=== PATIENT | female | born 1970 | race African-American/Black ===

== ENCOUNTER 2017-10-23 03:28 | Inpatient (IN) | payer OTHER ==
[2017-10-23] VITALS (13 sets, daily range): BP systolic 117–214; BP diastolic 63–122; PULSE 63–104; RESP 13–18; TEMP 97.9–98.7; O2SAT 99–100
[~2017-10-23] VITALS: Ht 165.1 cm; Wt 74.8 kg
[2017-10-23] MEDS ORDERED: IOHEXOL 350 MG/ML 10 ML VIAL (for RAD DIAG) IVCONTRAST ONE (03:29)
--- NOTE | 2017-10-23 03:51 | RADRPT ---
EXAM DATE/TIME: 10/23/2017 03:43 [facility] COMPARISON: No previous studies available for comparison. INDICATIONS : Stroke alert; right sided weakness. RADIATION DOSE: 35.34 CTDIvol (mGy) This report was called by Dr Ramírez to Dr Gonzalez at 0349 MEDICAL HISTORY : Cerebrovascular disease. SURGICAL HISTORY : None. ENCOUNTER: Initial ACUITY: 1 day PAIN SCALE: 0/10 LOCATION: cranial TECHNIQUE: Multiple contiguous axial images were obtained of the head. Using automated exposure control and adj ustment of the mA and/or kV according to patient size, radiation dose was kept as low as reasonably a chievable to obtain optimal diagnostic quality images. DICOM format image data is available electro nically for review and comparison. FINDINGS: CEREBRUM: The ventricles are normal for age. No evidence of midline shift, mass lesion, hemorrhage or acute in farction. No extra-axial fluid collections are seen. POSTERIOR FOSSA: The cerebellum and brainstem are intact. The 4th ventricle is midline. The cerebellopontine angle i s unremarkable. EXTRACRANIAL: The visualized portion of the orbits is intact. SKULL: The calvaria is intact. No evidence of skull fracture. CONCLUSION: Normal examination. Mo Ramírez Jr., MD on October 23, 2017 at 3:48 Board Certified Radiologist. This report was verified electronically.
[2017-10-23 03:58] LABS: AUTOMATED NEUTROPHIL # 2.2 TH/MM3 (1.8-7.7); BASOPHIL % 0.4 % (0.0-2.0); EOSINOPHIL # 0.5 TH/MM3 (0-0.4); EOSINOPHIL % 7.5 % (0.0-4.0); HEMATOCRIT 40.9 % (35.0-46.0); HEMOGLOBIN 13.6 GM/DL (11.6-15.3); LYMPH % 50.9 % (9.0-44.0); LYMPHOCYTE # 3.4 TH/MM3 (1.0-4.8); MEAN CELL VOLUME 82.2 FL (80.0-100.0); MEAN CORPUSCULAR HEMOGLOBIN 27.3 PG (27.0-34.0); MEAN CORPUSCULAR HGB CONC 33.3 % (32.0-36.0); MEAN PLATELET VOLUME 9.2 FL (7.0-11.0); MONO % 7.6 % (0.0-8.0); MONOCYTE # 0.5 TH/MM3 (0-0.9); NEUT % 33.6 % (16.0-70.0); PLATELET COUNT 187 TH/MM3 (150-450); RED BLOOD COUNT 4.97 MIL/MM3 (4.00-5.30); RED CELL DISTRIBUTION WIDTH 14.4 % (11.6-17.2); WHITE BLOOD COUNT 6.6 TH/MM3 (4.0-11.0)
[2017-10-23] MEDS ORDERED: SODIUM CHLORIDE 0.9% 50 ML BAG IVF ONE (04:00)
[2017-10-23] MEDS ORDERED: MISCELLANEOUS NURSING INFORMATION XX PRN (04:00)
[2017-10-23] MEDS ORDERED: ALTEPLASE BOLUS 9 MG/9 ML SYR IV ONE (04:00)
[2017-10-23] MEDS ORDERED: ALTEPLASE DRIP 60.5 MG in SYRINGE/BAG 1 EA IV ONE (04:00)
--- NOTE | 2017-10-23 04:00 | PD ---
HPI Chief Complaint: Neuro Symptoms/ Deficits Time Seen by Provider: 03:31 Travel History International Travel<30 days: No Contact w/Intl Traveler<30days: No History of Present Illness HPI The patient is a 47 year old female who presents to the [facility] emergency department with a history of reportedly not feeling well prior to going to work at midnight. She is unable to explain how she did not feel well as she is having difficulty speaking. She reports that the symptoms were getting worse at work. She called her boss between 1 and 2 AM and he decided to take her to the emergency department. When she got in the car to come to the emergency department she reports that she was having difficulty putting on her seatbelt. That is when she noticed that she had difficulty moving her right arm. She denies having this previously. She reports that she does have a history of residual weakness of the right lower extremity related to a stroke in March 2017. She denies taking an aspirin on a regular basis daily. She reports that she was on Coumadin up until May 2017. She reports that she does have a history of high blood pressure. The patient estimates that the right upper extremity weakness and difficulty speaking began just prior to arrival in the emergency department while she was in the car being transported by her boss to this facility approximately 30 minutes ago. She reports that she did have chest pain in the vehicle. She denies having any shortness of breath. Otherwise on review of systems, she denies having any recent known fevers, cough or congestion, neck pain, abdominal pain, vomiting, diarrhea, or urinary symptoms. [facility] Past Medical History Narrative Medical The patient's past medical history is significant for stroke with residual weakness of the right leg that occurred in 03/2017, history of anticoagulation on Coumadin until [id number], hypertension. Past Surgical History Narrative Surgical The patient's past surgical history is significant for hysterectomy 1998. Social History Alcohol Use: No Tobacco Use: No Substance Use: No Allergies-Medications (Allergen,Severity, Reaction): Coded Allergies: No Known Allergies (Unverified , 10/23/17) Review of Systems Except as stated in HPI: all other systems reviewed are Neg General / Constitutional: No: Fever Eyes: No: Visual changes HENT: No: Headaches, Congestion, Neck Stiffness, Neck Pain Cardiovascular: Positive: Chest Pain or Discomfort Respiratory: No: Cough, Shortness of Breath Gastrointestinal: No: Abdominal Pain Genitourinary: No: Dysuria Musculoskeletal: No: Pain Skin: No Rash Neurologic: Positive: Weakness, Focal Abnormalities, Change in Mentation, Sensory Disturbance, No: Slurred Speech Psychiatric: No: Depression Endocrine: No: Polydipsia Hematologic/Lymphatic: No: Easy Bruising Physical Exam Narrative General: The patient is a well-developed well-nourished female, tearful on initial arrival. She is having difficulty speaking. Head and Neck exam: Head is normocephalic atraumatic. Eyes: EOMI, pupils are equal round and reactive to light. Nose: Midline septum with pink mucous membranes Mouth: Dentition unremarkable. Moist mucus membranes. Posterior oropharynx is not erythematous. No tonsillar hypertrophy. Uvula midline. Airway patent. Neck: No palpable lymphadenopathy. No nuchal rigidity. No thyromegaly. Cardiovascular: Regular rate and rhythm without murmurs, gallops, or rubs. No pulse deficit to the extremities on simultaneous auscultation and palpation of her radial artery. Lungs: Clear to auscultation bilaterally. No wheezes, rhonchi, or rales. Abdomen: Soft, without tenderness to palpation in all 4 quadrants of the abdomen. No guarding, rebound, or rigidity. Normal bowel sounds are audible. No tenderness on palpation of McBurney's point. Extremities: No clubbing, cyanosis, or edema. 2+ pulses in all 4 extremities. No calf tenderness on palpation. Back: No costovertebral angle tenderness to palpation. Neurologic Exam: Initial NIH score is 6. The patient has a mild left-sided facial droop. The patient has right upper and right lower extremity weakness that is 3/5 in the right lower extremity and 4/5 in the right upper extremity. The patient has a mild expressive aphasia and is slow to answer questions. The patient has decreased sensation reported in her right upper and right lower extremity, normal sensation over all other dermatomes. No visual deficits noted. Skin Exam: No rash noted. Intact skin that is warm and dry. Data Data Last Documented VS Vital Signs Date Time Temp Pulse Resp B/P (MAP) Pulse Ox O2 Delivery O2 Flow Rate FiO2 10/23/17 04:55 85 16 129/78 (95) 100 Room Air 10/23/17 03:30 98.2 10/23/17 03:30 21 Orders Orders Diet Npo (3/12/18 Breakfast) Activity Bed Rest (10/23/17 ) Electrocardiogram (10/23/17 ) I-Stat Profile (10/23/17 03:41) Prothrombin Time / Inr (Pt) (10/23/17 03:41) Act Partial Throm Time (Ptt) (10/23/17 03:41) Complete Blood Count With Diff (10/23/17 03:41) Fibrinogen (10/23/17 03:41) Creatine Kinase (Cpk) (10/23/17 03:41) Troponin I (10/23/17 03:41) Ua Includes Microscopic (10/23/17 03:41) Drug Screen, Random Urine (10/23/17 03:41) Type And Screen (10/23/17 03:41) Ct Brain W/O Iv Contrast(Rout) (10/23/17 ) Cta Brain W Iv Contrast W 3d (10/23/17 03:41) Cta Neck W Iv Contrast W 3d (10/23/17 03:41) Beta Hcg (Quant/Titer) (10/23/17 03:41) Blood Glucose (10/23/17 03:41) Ecg Monitoring (10/23/17 03:41) Neuro Checks Q2HX12,Q4H (10/23/17 03:41) Nursing Bedside Swallow Assess .ONCE (10/23/17 03:41) Iv Access Insert/Monitor (10/23/17 03:41) NPO (10/23/17 03:41) Oximetry (10/23/17 03:41) Resp Oxygen Nc Stroke (10/23/17 ) Cath For Specimen (10/23/17 03:41) Consult Neurology (10/23/17 ) ^ Call Pharmacy (10/23/17 03:55) Nih Stroke Scale - Nihss .ONCE (10/23/17 03:55) Urinary Catheter Insert/Apply (10/23/17 03:55) Anticoagulant Alert (10/23/17 03:55) ^ Post Infusion Restrictions (10/23/17 03:55) ^ Medication Alert (10/23/17 03:55) Vital Signs (Adult) .As directed (10/23/17 03:55) Notify Dr: Blood Pressure (10/23/17 03:55) ^ Medication Alert (10/23/17 03:55) Alteplase Bolus (Activase Bolus) (10/23/17 04:00) Alteplase Drip (Activase Drip) (10/23/17 04:00) Sodium Chloride 0.9% Inj (Ns Inj) (10/23/17 04:00) Misc Nursing Information (10/23/17 04:00) Resp Oxygen Nc Stroke (10/23/17 ) Ct Brain W/O Iv Contrast(Rout) (10/24/17 ) Iohexol 350 Inj (Omnipaque 350 Inj) (10/23/17 03:29) (Hub Use Only)Inp Phy Cons/Ref (10/23/17 ) Admit Order (Ed Use Only) (10/23/17 05:58) Labs Laboratory Tests Test 10/23/17 03:40 10/23/17 04:15 White Blood Count 6.6 TH/MM3 Red Blood Count 4.97 MIL/MM3 Hemoglobin 13.6 GM/DL Bedside Hemoglobin 13.9 G/DL Hematocrit 40.9 % Bedside Hematocrit 41.0 % Mean Corpuscular Volume 82.2 FL Mean Corpuscular Hemoglobin 27.3 PG Mean Corpuscular Hemoglobin Concent 33.3 % Red Cell Distribution Width 14.4 % Platelet Count 187 TH/MM3 Mean Platelet Volume 9.2 FL Neutrophils (%) (Auto) 33.6 % Lymphocytes (%) (Auto) 50.9 % Monocytes (%) (Auto) 7.6 % Eosinophils (%) (Auto) 7.5 % Basophils (%) (Auto) 0.4 % Neutrophils # (Auto) 2.2 TH/MM3 Lymphocytes # (Auto) 3.4 TH/MM3 Monocytes # (Auto) 0.5 TH/MM3 Eosinophils # (Auto) 0.5 TH/MM3 Basophils # (Auto) 0.0 TH/MM3 CBC Comment DIFF FINAL Differential Comment Prothrombin Time 10.7 SEC Prothromb Time International Ratio 1.1 RATIO Activated Partial Thromboplast Time 27.9 SEC Fibrinogen 261 mg/dL Bedside Sodium 142 MMOL/L Bedside Potassium 3.9 MMOL/L Bedside Chloride 104 MMOL/L Bedside Blood Urea Nitrogen 8 MG/DL Bedside Creatinine 1.0 MG/DL Bedside Glucose 95 MG/DL Total Creatine Kinase 177 U/L Troponin I LESS THAN 0.02 NG/ML Human Chorionic Gonadotropin, Quant 1 MIU/ML Urine Color LIGHT-YELLOW Urine Turbidity CLEAR Urine pH 6.0 Urine Specific [place] 1.019 Urine Protein NEG mg/dL Urine Glucose (UA) NEG mg/dL Urine Ketones NEG mg/dL Urine Occult Blood NEG Urine Nitrite NEG Urine Bilirubin NEG Urine Urobilinogen LESS THAN 2.0 MG/DL Urine Leukocyte Esterase SMALL Urine RBC LESS THAN 1 /hpf Urine WBC LESS THAN 1 /hpf Urine Squamous Epithelial Cells 1 /hpf Urine Opiates Screen NEG Urine Barbiturates Screen NEG Urine Amphetamines Screen NEG Urine Benzodiazepines Screen NEG Urine Cocaine Screen NEG Urine Cannabinoids Screen NEG MDM Medical Decision Making Medical Screen Exam Complete: Yes Emergency Medical Condition: Yes Medical Record Reviewed: Yes Interpretation(s) Last Impressions Neck CTA 10/23/17340 Signed Impressions: Service Date/Time: Monday, October 23, 2017 03:56 - CONCLUSION: Patent carotid arteries and vertebral arteries bilaterally. Mo Ramírez Jr., MD Head CTA 10/23/17340 Signed Impressions: Service Date/Time: Monday, October 23, 2017 03:56 - CONCLUSION: Unremarkable exam. Mo Ramírez Jr., MD Head CT 10/23/17 0000 Signed Impressions: Service Date/Time: Monday, October 23, 2017 03:43 - CONCLUSION: Normal examination. Mo Ramírez Jr., MD Differential Diagnosis Ischemic stroke, versus intracranial hemorrhage, versus hypoglycemia, versus encephalopathy, versus intracranial mass Narrative Course During the course of the patient's emergency department visit, the patient's history, examination, and differential diagnosis were reviewed with the patient. The patient was placed on a chemical equipment repairer with oximetry and frequent blood pressure monitoring. The patient had IV access obtained and blood work sent for analysis. The patient was called as a stroke alert as I was arriving in the room based on the patient's assessment by the nurse. The patient's blood sugar was noted to be in the 90s. A rapid assessment might be reveals that the patient has right-sided weakness, left-sided facial droop, mild expressive aphasia. The patient was transported to CT. A stroke alert was called at 3:33AM. I spoke to Dr. Barros the neurologist on-call regarding this patient's case. We reviewed the patient's symptoms and he was agreeable that the patient is a candidate for TPA administration if her CT scan without contrast is negative for bleed. Patient's initial blood pressure was 200 systolic, however it rapidly improved on repeat evaluation while in CT. The patient's blood pressure came down to the 160s systolic. An EKG revealed that the patient had a sinus rhythm of 84, QRS duration 91 ms, QTC [address] segment elevation. The patient was initially provided normal saline at 70 mL/h. The patient's head of the bed was placed flat. The patient's laboratory studies were reviewed and remarkable for an i-STAT with creatinine revealed a creatinine of 1.0, hemoglobin 13.9, glucose 95, sodium 142, potassium 3.9. Radiology studies were reviewed and remarkable for a CT scan of the brain that was read by the reading radiologist, Dr. Ramírez is negative for intracranial hemorrhage. The patient was offered TPA administration and CT scan while we are in the process of also completing a CTA of the head and neck. The patient' s initial NIH score is 8 at approximately 3:45 AM. Risks and benefits for tPA were discussed with the patient. Risks including hemorrhage, including potentially fatal GI and intracranial bleeding which can result in long-term serious disability or were discussed. Benefits including resolution of symptoms were discussed. The patient consented verbally to proceed with therapy. TPA was started and the CT scan well CTA of the head and neck was completed. The patient was then transported back to the emergency department bed. CTA of the head and neck shows no acute evidence of thrombosis. The patient's results were discussed with the patient, including the plan of care. I explained that further testing and/ or monitoring is indicated based on the patient's history, examination, and/ or laboratory findings. Therefore, I recommended admission for additional evaluation. The patient expressed understanding and was agreeable with this plan. The patient was admitted to the hospital in guarded condition and sent to a bed under the care of the quality measurement specialist service. Critical Care Narrative Aggregate critical care time was 34 minutes. Time to perform other separately billable procedures was not included in the critical care time. My time did not include minutes spent treating any other patients simultaneously or on activities that did not directly contribute to the patient's treatment. The services I provided to this patient were to treat and/or prevent clinically significant deterioration that could result in: Progressive neurologic disability, versus intracranial hemorrhage, versus respiratory failure from neurologic decline I provided critical care services requiring my management, as noted below: Chart data review, documentation time, medication orders and management, vital sign assessments/reviewing monitor data, ordering and reviewing lab tests, ordering and interpreting/reviewing x-rays and diagnostic studies, care of the patient and discussion of the patient with the admitting physicians. Physician Communication Physician Communication The patient's case including history, pertinent physical examination findings, and laboratory studies were discussed with Dr. Mcdowell. It was agreed that the patient would be admitted to the quality measurement specialist service. At 3:45 AM, I spoke to Dr. Barros and he recommended TPA administration if the CT brain without contrast was negative for bleed. Diagnosis Primary Impression: Stroke Qualified Codes: I63.9 - Cerebral infarction, unspecified Admitting Information Admitting Physician Requests: it Liza Gonzalez MD Oct 23, 2017 04:00
[2017-10-23 04:13] LABS: INTERNATIONAL NORMALIZED RATIO 1.1 RATIO; PROTHROMBIN TIME - PATIENT 10.7 SEC (9.8-11.6)
[2017-10-23 04:28] LABS: TROPONIN I LESS THAN 0.02 NG/ML (0.02-0.05)
--- NOTE | 2017-10-23 04:37 | RADRPT ---
EXAM DATE/TIME: 10/23/2017 03:56 [facility] COMPARISON: No previous studies available for comparison. INDICATIONS : Stroke alert. Right sided weakness. IV CONTRAST: 100 cc Omnipaque 350 (iohexol) IV RADIATION DOSE: 26.77 CTDIvol (mGy) ; Combined studies MEDICAL HISTORY : Cardiovascular disease. SURGICAL HISTORY : None. ENCOUNTER: Initial ACUITY: 1 day PAIN SCALE: 0/10 LOCATION: cranial TECHNIQUE: Volumetric scanning was performed using a multi-row detector CT scanner. The data was post processed with a variety of visualization algorithms including full volume maximum intensity projection, multi -planar sliding thin slab reformation, curved planar reformation, and surface rendering techniques. Using automated exposure control and adjustment of the mA and/or kV according to patient size, radiat ion dose was kept as low as reasonably achievable to obtain optimal diagnostic quality images. DICO M format image data is available electronically for review and comparison. FINDINGS: There is excellent visualization of the major intracranial arteries out to the second-order branch ve ssels. There is no evidence for aneurysm, vessel truncation or stenosis, and no evidence for vascula r malformation. CONCLUSION: Unremarkable exam. Mo Ramírez Jr., MD on October 23, 2017 at 4:34 Board Certified Radiologist. This report was verified electronically.
--- NOTE | 2017-10-23 04:37 | RADRPT ---
EXAM DATE/TIME: 10/23/2017 03:56 [facility] COMPARISON: No previous studies available for comparison. INDICATIONS : Stroke Alert. Right sided weakness. IV CONTRAST: 100 cc Omnipaque 350 (iohexol) IV ; Cumulative dose for multiple exams. RADIATION DOSE: 26.77 CTDIvol (mGy) ; Combined studies MEDICAL HISTORY : Cerebrovascular disease. SURGICAL HISTORY : None. ENCOUNTER: Initial ACUITY: 1 day PAIN SCALE: 0/10 LOCATION: carotids Elevated flow velocities and ICA/CCA ratios have been found to correlate with increased degrees of vessel stenosis, calculated as percentage of diameter relative to a normal segment of distal ICA/CCA. TECHNIQUE: Volumetric scanning was performed using a multirow detector CT scanner. The data was post processed with a variety of visualization algorithms including full-volume maximum intensity projection, multip lanar sliding thin-slab reformation, curved-planar reformation, and surface-rendering techniques. Us ing automated exposure control and adjustment of the mA and/or kV according to patient size, radiatio n dose was kept as low as reasonably achievable to obtain optimal diagnostic quality images. DICOM f ormat image data is available electronically for review and comparison. FINDINGS: AORTIC ARCH: There is a three-vessel origin of the great vessels from the aorta. No evidence of ostial narrowing. RIGHT CAROTID: The common carotid artery is intact. The carotid bulb has a normal configuration without ulceration o r narrowing. The internal carotid artery lumen is smooth without stenosis. The external carotid kiran ry is intact. LEFT CAROTID: The common carotid artery is intact. The carotid bulb has a normal configuration without ulceration or narrowing. The internal carotid artery lumen is smooth without stenosis. The external carotid ar jevon is intact. VERTEBRALS: The vertebral arteries have a symmetric diameter. No stenotic lesions are seen. CONCLUSION: Patent carotid arteries and vertebral arteries bilaterally. Mo Ramírez Jr., MD on October 23, 2017 at 4:35 Board Certified Radiologist. This report was verified electronically.
[2017-10-23 04:44] LABS: BILIRUBIN, URINE NEG (NEG); BLOOD, URINE NEG (NEG); GLUCOSE,URINE NEG (NEG); KETONE, URINE NEG (NEG); NITRITE,URINE NEG (NEG); SQUAMOUS EPITHELIAL CELL URINE 1 /hpf (0-5); URINE COLOR LIGHT-YELLOW (YELLW/STRAW); URINE LEUKOCYTE ESTERASE SMALL (NEG)
[2017-10-23] MEDS ORDERED: LABETALOL HCL 100 MG/20 ML VIAL IV PUSH PRN (06:30)
[2017-10-23] MEDS ORDERED: GLUCAGON 1 MG/ML VIAL OTHER PRN (06:30)
[2017-10-23] MEDS ORDERED: DEXTROSE 50% IN WATER 50 ML VIAL(D50) IV PUSH PRN (06:30)
[2017-10-23] MEDS ORDERED: SODIUM CHLORIDE 0.9% FLUSH 10 ML FLUSH IV FLUSH PRN (06:30)
[2017-10-23] MEDS: SODIUM CHLOR 0.9% 1000 ML INJ 1,000 ML IV SCH ×2 (06:49→20:57)
[2017-10-23] MEDS: INSULIN ASPART SUPPLEMENTAL SCALE SQ SCH ×4 (08:00→21:00)
[2017-10-23] MEDS: SODIUM CHLORIDE 0.9% FLUSH 10 ML FLUSH IV FLUSH SCH ×2 (08:08→20:56)
[2017-10-23] MEDS: ACETAMINOPHEN 325 MG TAB PO PRN (11:00)
--- NOTE | 2017-10-23 13:18 | HHI.HP ---
HPI Service Critical Care Medicine Primary Care Physician Unknown Admission Diagnosis STOKE Alert Diagnosis: Chief Complaint: Right sided weakness Travel History International Travel<30 Days: No Contact w/Intl Traveler <30 Da: No Traveled to Known Affected Are: No History of Present Illness HPI The patient is a 47 year old female who presents to the [facility] emergency department with a history of reportedly not feeling well prior to going to work at midnight. She is unable to explain how she did not feel well as she is having difficulty speaking. She reports that the symptoms were getting worse at work. She called her boss between 1 and 2 AM and he decided to take her to the emergency department. When she got in the car to come to the emergency department she reports that she was having difficulty putting on her seatbelt. That is when she noticed that she had difficulty moving her right arm. She denies having this previously. She reports that she does have a history of residual weakness of the right lower extremity related to a stroke in March 2017. She denies taking an aspirin on a regular basis daily. She reports that she was on Coumadin up until May 2017. She reports that she does have a history of high blood pressure. The patient estimates that the right upper extremity weakness and difficulty speaking began just prior to arrival in the emergency department while she was in the car being transported by her boss to this facility approximately 30 minutes ago. She reports that she did have chest pain in the vehicle. She denies having any shortness of breath. Otherwise on review of systems, she denies having any recent known fevers, cough or congestion, neck pain, abdominal pain, vomiting, diarrhea, or urinary symptoms. Patient underwent head CT which was negative for bleed. She was initiated on TPA for thrombolysis. CT of brain did not show any occlusion of major vessels. Patient was accepted for admission by critical care medicine service with consult to neurology. When I evaluated the patient in the ER early this morning she was laying in the ER stretcher not in any acute distress. History is obtained by reviewing records and discussion with ER physician. History [facility] Past Medical History Narrative Medical The patient's past medical history is significant for stroke with residual weakness of the right leg that occurred in 03/2017, history of anticoagulation on Coumadin until [id number], hypertension. Past Surgical History Narrative Surgical The patient's past surgical history is significant for hysterectomy 1998. Social History Alcohol Use: No Tobacco Use: No Substance Use: No Allergies-Medications Allergies-Medications (Allergen,Severity, Reaction): Coded Allergies: No Known Allergies (Unverified , 10/23/17) ROS Review of Systems Except as stated in HPI: all other systems reviewed are Neg General / Constitutional: No: Fever Eyes: No: Visual changes HENT: No: Headaches, Congestion, Neck Stiffness, Neck Pain Cardiovascular: Positive: Chest Pain or Discomfort Respiratory: No: Cough, Shortness of Breath Gastrointestinal: No: Abdominal Pain Genitourinary: No: Dysuria Musculoskeletal: No: Pain Skin: No Rash Neurologic: Positive: Weakness, Focal Abnormalities, Change in Mentation, Sensory Disturbance, No: Slurred Speech Psychiatric: No: Depression Endocrine: No: Polydipsia Hematologic/Lymphatic: No: Easy Bruising Physical Exam Vital Signs Vital Signs Date Time Temp Pulse Resp B/P (MAP) Pulse Ox O2 Delivery O2 Flow Rate FiO2 10/23/17 08:40 10/23/17 08:30 98.1 70 17 142/84 (103) 100 10/23/17 07:32 100 Room Air 10/23/17 07:28 66 15 100 Room Air 10/23/17 07:23 97.9 66 15 125/76 (92) 100 Room Air 10/23/17 06:49 67 16 132/80 (97) 100 Room Air 10/23/17 04:55 85 16 129/78 (95) 100 Room Air 10/23/17 03:55 86 18 160/86 (110) 99 Room Air 10/23/17 03:30 98.2 101 18 181/113 (135) 100 10/23/17 03:30 100 21 10/23/17 03:30 75 16 100 Room Air 10/23/17 03:30 98.0 104 16 214/122 (152) 100 Room Air 10/23/17 03:30 100 Physical Exam HEENT: No pallor or icterus, tongue moist, MINOO, Neuro: Initial NIH score is 6. The patient has a mild left-sided facial droop. The patient has right upper and right lower extremity weakness that is 3/5 in the right lower extremity and 4/5 in the right upper extremity. The patient has a mild expressive aphasia and is slow to answer questions. The patient has decreased sensation reported in her right upper and right lower extremity, normal sensation over all other dermatomes. No visual deficits noted. Neck: No JVD Chest/pulmonary: CTA bilaterally Cardiovascular: S1-S2 regular no gallop or murmur GI/abdomen: Soft, nontender, bowel sounds present Extremities: Warm bilaterally, no edema Laboratory Laboratory Tests Test 10/23/17 03:40 10/23/17 04:15 White Blood Count 6.6 Red Blood Count 4.97 Hemoglobin 13.6 Bedside Hemoglobin 13.9 Hematocrit 40.9 Bedside Hematocrit 41.0 Mean Corpuscular Volume 82.2 Mean Corpuscular Hemoglobin 27.3 Mean Corpuscular Hemoglobin Concent 33.3 Red Cell Distribution Width 14.4 Platelet Count 187 Mean Platelet Volume 9.2 Neutrophils (%) (Auto) 33.6 Lymphocytes (%) (Auto) 50.9 Monocytes (%) (Auto) 7.6 Eosinophils (%) (Auto) 7.5 Basophils (%) (Auto) 0.4 Neutrophils # (Auto) 2.2 Lymphocytes # (Auto) 3.4 Monocytes # (Auto) 0.5 Eosinophils # (Auto) 0.5 Basophils # (Auto) 0.0 CBC Comment DIFF FINAL Differential Comment Prothrombin Time 10.7 Prothromb Time International Ratio 1.1 Activated Partial Thromboplast Time 27.9 Fibrinogen 261 Bedside Sodium 142 Bedside Potassium 3.9 Bedside Chloride 104 Bedside Blood Urea Nitrogen 8 Bedside Creatinine 1.0 Bedside Glucose 95 Total Creatine Kinase 177 Troponin I LESS THAN 0.02 Human Chorionic Gonadotropin, Quant 1 Urine Color LIGHT-YELLOW Urine Turbidity CLEAR Urine pH 6.0 Urine Specific [place] 1.019 Urine Protein NEG Urine Glucose (UA) NEG Urine Ketones NEG Urine Occult Blood NEG Urine Nitrite NEG Urine Bilirubin NEG Urine Urobilinogen LESS THAN 2.0 Urine Leukocyte Esterase SMALL Urine RBC LESS THAN 1 Urine WBC LESS THAN 1 Urine Squamous Epithelial Cells 1 Urine Opiates Screen NEG Urine Barbiturates Screen NEG Urine Amphetamines Screen NEG Urine Benzodiazepines Screen NEG Urine Cocaine Screen NEG Urine Cannabinoids Screen NEG Result Diagram: 10/23/17339 Imaging Last Impressions Neck CTA 10/23/17340 Signed Impressions: Service Date/Time: Monday, October 23, 2017 03:56 - CONCLUSION: Patent carotid arteries and vertebral arteries bilaterally. Mo Ramírez Jr., MD Head CTA 10/23/17340 Signed Impressions: Service Date/Time: Monday, October 23, 2017 03:56 - CONCLUSION: Unremarkable exam. Mo Ramírez Jr., MD Head CT 10/23/17 0000 Signed Impressions: Service Date/Time: Monday, October 23, 2017 03:43 - CONCLUSION: Normal examination. MD Darling Solis Jr. VTE Risk Assessment Darling VTE Risk Assessment: Mod/High Risk (score >= 2) Jose Luisrinyue Risk Assessment Model Point Value = 1 Point Value = 2 Point Value = 3 Point Value = 5 Age 41-60 Minor surgery BMI > 25 kg/m2 Swollen legs Varicose veins or History of unexplained or recurrent spontaneous Oral contraceptives or hormone replacement Sepsis (< 1 month) Serious lung disease, including pneumonia (< 1 month) Abnormal pulmonary function Acute myocardial infarction Congestive heart failure (< 1 month) History of inflammatory bowel disease Medical patient at bed rest Age 61-74 Arthroscopic surgery Major open surgery (> 45 min) Laparoscopic surgery (> 45 min) Malignancy Confined to bed (> 72 hours) Immobilizing plaster cast Central venous access Age >= 75 History of VTE Family history of VTE Factor V Leiden Prothrombin [id number] Lupus anticoagulant Anticardiolipin antibodies Elevated serum homocysteine Heparin-induced thrombocytopenia Other congenital or acquired thrombophilia Stroke (< 1 month) Elective arthroplasty Hip, pelvis, or leg fracture Acute spinal cord injury (< 1 month) Prophylaxis Regimen Total Risk Factor Score Risk Level Prophylaxis Regimen 0-1 Low Early ambulation 2 Moderate Order ONE of the following: *Sequential Compression Device (SCD) *Heparin 5000 units SQ BID 3-4 Higher Order ONE of the following medications: *Heparin 5000 units SQ TID *Enoxaparin/Lovenox 40 mg SQ daily (WT < 150 kg, CrCl > 30 mL/min) *Enoxaparin/Lovenox 30 mg SQ daily (WT < 150 kg, CrCl > 10-29 mL/min) *Enoxaparin/Lovenox 30 mg SQ BID (WT < 150 kg, CrCl > 30 mL/min) AND/OR *Sequential Compression Device (SCD) 5 or more Highest Order ONE of the following medications: *Heparin 5000 units SQ TID (Preferred with Epidurals) *Enoxaparin/Lovenox 40 mg SQ daily (WT < 150 kg, CrCl > 30 mL/min) *Enoxaparin/Lovenox 30 mg SQ daily (WT < 150 kg, CrCl > 10-29 mL/min) *Enoxaparin/Lovenox 30 mg SQ BID (WT < 150 kg, CrCl > 30 mL/min) AND *Sequential Compression Device (SCD) Assessment and Plan Assessment and Plan Ischemic CVA s/p thrombolysis Plan: Admit to ICU Neurochecks per stroke protocol Neurology consult requested. Further neuro imaging per neurology. Repeat head CT in 24 hours following, lysis. Antiplatelet therapy to be initiated 24 hours after thrombolysis following review of head CT. Speech and swallow eval 2-D echo Follow stroke protocol. Further recommendations per neurology Consult and transfer to hospitalist service tomorrow for further medical management Gustavo Mcdowell MD Oct 23, 2017 13:18
[2017-10-23 16:43] LABS: HEMOGLOBIN A1C 5.6 % (4.3-6.0)
--- NOTE | 2017-10-23 17:36 | RADRPT ---
EXAM DATE/TIME: 10/23/2017 16:07 [facility] COMPARISON: CT BRAIN W/O CONTRAST, October 23, 2017, 3:43. INDICATIONS : CVA. Headaches with chest pains last night. MEDICAL HISTORY : Hypertension. SURGICAL HISTORY : Hysterectomy. ENCOUNTER: Initial ACUITY: 2 day PAIN SCORE: 3/10 LOCATION: Bilateral cranial TECHNIQUE: Multiplanar, multisequence MRI of the brain was performed without contrast. FINDINGS: CEREBRUM: The ventricles are normal for age. No evidence of midline shift, mass lesion, hemorrhage or acute in farction. No extraaxial fluid collections are seen. The pituitary gland and suprasellar cistern are normal in configuration. WHITE MATTER: No significant signal abnormalities are seen in the white matter. POSTERIOR FOSSA: The cerebellum and brainstem are intact. The 4th ventricle is midline. The cerebellopontine angle is unremarkable. The cerebellar tonsils are normal in position. DIFFUSION IMAGING: No focal areas of restricted diffusion are seen. No evidence of acute infarction. EXTRACRANIAL: The visualized portions of the orbits and paranasal sinuses are unremarkable. CONCLUSION: 1. No acute intra-cranial abnormality identified. Elmo Balderrama MD on October 23, 2017 at 17:32 Board Certified Radiologist. This report was verified electronically.
--- NOTE | 2017-10-23 18:14 | EKG ---
Date Performed: 10/23/2017 Time Performed: 04:04:16 PTAGE: 47 years EKG: Sinus rhythm NORMAL ECG NO PREVIOUS TRACING DOCTOR: Bailey Talbot Interpretating Date/Time 10/23/2017 18:11:58
[2017-10-23] MEDS: ATORVASTATIN 10 MG TAB PO SCH (20:57)
[2017-10-24] VITALS (14 sets, daily range): BP systolic 105–144; BP diastolic 56–78; PULSE 60–88; RESP 14–21; TEMP 98–98.8; O2SAT 98–100
[2017-10-24] MEDS: ACETAMINOPHEN 325 MG TAB PO PRN ×2 (05:18→22:56)
--- NOTE | 2017-10-24 05:21 | RADRPT ---
EXAM DATE/TIME: 10/24/2017 04:57 [facility] COMPARISON: CT BRAIN W/O CONTRAST, October 23, 2017, 3:43. INDICATIONS : Post 24 hour TPA. Evaluate for bleed. RADIATION DOSE: 56.35 CTDIvol (mGy) MEDICAL HISTORY : Cerebrovascular disease. Cardiovascular disease Hypertension.Diabetes GERD SURGICAL HISTORY : None. ENCOUNTER: Subsequent ACUITY: 1 day PAIN SCALE: 0/10 LOCATION: cranial TECHNIQUE: Multiple contiguous axial images were obtained of the head. Using automated exposure control and adj ustment of the mA and/or kV according to patient size, radiation dose was kept as low as reasonably a chievable to obtain optimal diagnostic quality images. DICOM format image data is available electro nically for review and comparison. FINDINGS: CEREBRUM: The ventricles are normal for age. No evidence of midline shift, mass lesion, hemorrhage or acute in farction. No extra-axial fluid collections are seen. POSTERIOR FOSSA: The cerebellum and brainstem are intact. The 4th ventricle is midline. The cerebellopontine angle i s unremarkable. EXTRACRANIAL: The visualized portion of the orbits is intact. SKULL: The calvaria is intact. No evidence of skull fracture. CONCLUSION: Normal examination. Mo Ramírez Jr., MD on October 24, 2017 at 5:18 Board Certified Radiologist. This report was verified electronically.
[2017-10-24 06:49] LABS: C-REACTIVE PROTEIN LESS THAN 0.29 MG/DL (0.00-0.30)
[2017-10-24 07:08] LABS: CHOLESTEROL/ HDL RATIO 2.76 RATIO; FOLATE 8.8 NG/ML (3.1-17.5); HDL CHOLESTEROL 48.8 MG/DL (40.0-60.0)
[2017-10-24 07:14] LABS: FREE T4 0.88 NG/DL (0.76-1.46)
--- NOTE | 2017-10-24 07:29 | HHI.PR ---
Subjective Remarks sr Objective Vital Signs Date Time Temp Pulse Resp B/P (MAP) Pulse Ox O2 Delivery O2 Flow Rate FiO2 10/24/17 06:00 72 10/24/17 04:00 72 10/24/17 04:00 98.3 72 14 116/69 (85) 100 10/24/17 02:00 70 10/24/17 00:00 98.0 60 21 105/56 (72) 100 10/24/17 00:00 60 10/23/17 22:00 76 10/23/17 21:38 100 21 10/23/17 20:00 74 10/23/17 20:00 98.7 74 13 117/63 (81) 100 10/23/17 19:00 99 Room Air 10/23/17 18:00 63 10/23/17 16:00 66 10/23/17 16:00 98.4 68 14 144/90 (108) 100 10/23/17 14:00 66 10/23/17 12:00 63 10/23/17 12:00 72 10/23/17 08:40 10/23/17 08:30 70 10/23/17 08:30 98.1 70 17 142/84 (103) 100 10/23/17 07:32 100 Room Air I/O 10/23/17 10/23/17 10/23/17 10/24/17 10/24/17 10/24/17 07:00 15:00 23:00 07:00 15:00 23:00 Intake Total 180 ml 400 ml Output Total 50 ml 850 ml Balance -50 ml -670 ml 400 ml Intake Oral 180 ml 400 ml Output Urine Total 50 ml 850 ml # Voids 2 1 2 # Bowel Movements 0 0 Result Diagram: 10/23/17 0340 Objective Remarks moving r arm better near nl lift knee off bed some Assessment and Plan Assessment and Plan imp ? complicated migraine no cva echo holter [place] notes oob should do well ldl nl Marty Barros MD Oct 24, 2017 07:29
[2017-10-24] MEDS: INSULIN ASPART SUPPLEMENTAL SCALE SQ SCH ×4 (08:00→20:39)
--- NOTE | 2017-10-24 08:58 | HHI.PR ---
Subjective Remarks in no acute distress. denies pain. has right-sided weakness. Objective Vitals Vital Signs Date Time Temp Pulse Resp B/P (MAP) Pulse Ox O2 Delivery O2 Flow Rate FiO2 10/24/17 08:35 100 21 10/24/17 06:00 72 10/24/17 04:00 72 10/24/17 04:00 98.3 72 14 116/69 (85) 100 10/24/17 02:00 70 10/24/17 00:00 98.0 60 21 105/56 (72) 100 10/24/17 00:00 60 10/23/17 22:00 76 10/23/17 21:38 100 21 10/23/17 20:00 74 10/23/17 20:00 98.7 74 13 117/63 (81) 100 10/23/17 19:00 99 Room Air 10/23/17 18:00 63 10/23/17 16:00 66 10/23/17 16:00 98.4 68 14 144/90 (108) 100 10/23/17 14:00 66 10/23/17 12:00 63 10/23/17 12:00 72 I/O 10/23/17 10/23/17 10/23/17 10/24/17 10/24/17 10/24/17 07:00 15:00 23:00 07:00 15:00 23:00 Intake Total 180 ml 400 ml Output Total 50 ml 850 ml Balance -50 ml -670 ml 400 ml Intake Oral 180 ml 400 ml Output Urine Total 50 ml 850 ml # Voids 2 1 2 # Bowel Movements 0 0 Result Diagram: 10/23/17 034 Imaging Last Impressions Head CT 10/24/17 0000 Signed Impressions: Service Date/Time: Tuesday, October 24, 2017 04:57 - CONCLUSION: Normal examination. Mo Ramírez Jr., MD Neck CTA 10/23/17340 Signed Impressions: Service Date/Time: Monday, October 23, 2017 03:56 - CONCLUSION: Patent carotid arteries and vertebral arteries bilaterally. Mo Ramírez Jr., MD Head CTA 10/23/17340 Signed Impressions: Service Date/Time: Monday, October 23, 2017 03:56 - CONCLUSION: Unremarkable exam. Mo Ramírez Jr., MD Brain MRI 10/23/17 0000 Signed Impressions: Service Date/Time: Monday, October 23, 2017 16:07 - CONCLUSION: 1. No acute intra-cranial abnormality identified. Elmo Balderrama MD Objective Remarks GENERAL: This is a well-nourished, well-developed patient, in no apparent distress. CARDIOVASCULAR: Regular rate and regular rhythm without murmurs, gallops, or rubs. RESPIRATORY: Clear to auscultation. Breath sounds equal bilaterally. No wheezes , rales, or rhonchi. GASTROINTESTINAL: Abdomen soft, non-tender, nondistended. Normal, active bowel sounds MUSCULOSKELETAL: Extremities without clubbing, cyanosis, or edema. NEURO: Alert & Oriented x4 to person, place, time, situation. right-sided weakness. Medications and IVs Inpatient Medications Acetaminophen (Tylenol) 650 mg Q4H PRN PO PAIN 1-10 Last administered on at 05:18; Start 10/23/17 at 10:30 Alteplase, Recombinant (Activase Bolus) 6.7 mg ONCE ONCE IV Last administered on 10/23/17at 04:58; Start 10/23/17 at 04:00; Stop 10/23/17 at 04:01; Status DC Alteplase, Recombinant 60.5 mg/Syringe / Bag 60.5 ml @ 60.5 mls/hr ONCE ONCE IV Last administered on 10/23/17at 04:59; Start 10/23/17 at 04:00; Stop at 04:59; Status DC Aspirin (Aspirin) 325 mg DAILY PO ; Start 10/24/17 at 09:00 Atorvastatin Calcium (Lipitor) 10 mg HS PO Last administered on 10/23/17at 20:57 ; Start 10/23/17 at 21:00 Dextrose (D50w (Vial) Inj) 50 ml UNSCH PRN IV PUSH HYPOGLYCEMIA-SEE COMMENTS Last administered on 10/23/17at 21:11; Start 10/23/17 at 06:30 Glucagon (Glucagon Inj) 1 mg UNSCH PRN OTHER HYPOGLYCEMIA-SEE COMMENTS; Start 10/23/17 at 06:30 Influenza Virus Vaccine (Flu (Quadrivalent) Vaccine Inj) 0.5 ml ONCE ONCE IM ; Start 10/24/17 at 10:00; Stop 10/24/17 at 10:01 Insulin Aspart (NovoLOG SUPPLEMENTAL SCALE) 1 ACHS SQ ; Start 10/23/17 at 08:00 Labetalol HCl (Trandate Inj) 10 mg Q2H PRN IV PUSH For SBP > 180 or DBP > 100; Start 10/23/17 at 06:30 Miscellaneous Information No Heparin, Warfarin, Aspir... UNSCH PRN XX SEE DOSE INSTRUCTIONS; Start 10/23/17 at 04:00; Stop 10/24/17 at 03:59; Status DC Sodium Chloride 1,000 ml @ 70 mls/hr [id number] IV Last administered on at 20:57; Start 10/23/17 at 06:23 Sodium Chloride (NS Flush) 2 ml UNSCH PRN IV FLUSH FLUSH AFTER USING IV ACCESS ; Start 10/23/17 at 06:30 Sodium Chloride (NS Inj) 30 ml ONCE ONCE IVF Last administered on 10/23/17at 04 :59; Start 10/23/17 at 04:00; Stop 10/23/17 at 04:01; Status DC A/P Assessment and Plan A/P Ischemic CVA s/p thrombolysis- vs complicated migraine continue aspirin and statin. EEG , echo and holter pending. neurology evaluation appreciated. continue PT/OT/ST. Discharge Planning when work-up is completed and cleared by neurology. case management for dc planning. María Snowden MD Oct 24, 2017 08:58
[2017-10-24] MEDS: SODIUM CHLORIDE 0.9% FLUSH 10 ML FLUSH IV FLUSH SCH ×2 (09:00→20:24)
[2017-10-24] MEDS: ASPIRIN 325 MG TAB PO SCH (09:01)
[2017-10-24] MEDS ORDERED: INFLUENZA VIRUS VACCINE (QUADRIVALENT) 0.5 ML SYR IM ONE (10:00)
--- NOTE | 2017-10-24 10:41 | MB ---
cc: Marty Barros MD DATE OF CONSULT: 10/23/2017 HISTORY OF PRESENT ILLNESS: This is a 47-year-old right handed woman with history of migraine headaches, hypertension, borderline diabetes, an MA she tells me, asthma, 1 miscarriage. In 2017, she was in [place], had a headache, blood pressure 180/116, had right-sided weakness for 3 months. Went to [facility], was told she had a stroke. An LP was done for some reason. May have shown some blood on 1 tube and then they said there was no aneurysm and she was put on Coumadin. Yesterday, she had chest pain, development of a headache and then some tingling in the right hand and then weak on the right arm and leg. Some slurred speech. Came into the ER. Stroke-Alert was called NIH Stroke Scale was 6. She was 3/5 in the right lower extremity, 4/5 in the right upper extremity. She had a mild expressive aphasia, slowly answered questions. Decreased sensation on the right upper and lower extremities. CT of the brain was negative. CTA of the neck and [place] were normal. Blood pressure initially was 200 systolic, but improved in CAT scan, down to 160. She was in sinus rhythm. NIH Stroke Scale was felt to be 8 on reevaluation. TPA was given. She has not had major improvement since that time. REVIEW OF SYSTEMS: She denies any hypercholesterolemia, atrial fibrillation, CABG, renal/hepatic disease, thyroid disease, lupus, ulcer, cancer, seizure. SOCIAL HISTORY: Nonsmoker, drinker. No drugs. Lives with her son. Works for a security company. FAMILY HISTORY: Negative for cancer. Negative for seizures. Positive for stroke in a grandmother. Negative for blood clots. Negative sickle cell. MEDICATIONS: She was not taking an aspirin. No medications. Her Coumadin had been stopped a few months after it was started. I think she was on it for about 3 months. ALLERGIES: NO KNOWN DRUG ALLERGIES. PHYSICAL EXAMINATION: VITAL SIGNS: Initially 214/122, now 144/90. NECK: There were no carotid bruits. CARDIOVASCULAR: Regular rhythm. I do not detect a murmur. NEUROLOGIC: Pupils were equal. Visual gray were full. Extraocular movements intact, without nystagmus. Face is symmetric. Tongue was midline. He has got some stuttering speech at times, other times it is fluent. She follows commands well. She had normal strength in the left upper and left lower extremity. Right upper extremity, she is diffusely weak, about a 3/5. Has a right lower extremity about a 3-/5. Toes are downgoing bilaterally. There is no clonus. DTRs are trace throughout. She has normal pinprick on the right chin, but the bottom of the right foot was diminished. Pin prick was symmetric in the hands and face bilaterally. She is not ataxic on [id number] on the left, could not do it on the right. IMAGING: MRI of the brain is normal. CTA of the neck and [place] were normal. I reviewed those films. No acute infarct is noted. No old infarct is seen. LABORATORY DATA: She had a CBC that was normal. Urine drug screen was negative. Urinalysis was normal. Basic metabolic profile was normal. Glucose was 95. Troponin, CPK, HCG was normal. Coags were normal. CBC was normal. IMPRESSION AND PLAN: Possibly a complicated migraine. She has not had an infarct by MRI. We will have to obtain those records from [facility] in [place] and see what their thoughts were and why they put her on Coumadin. For now, we will give her an aspirin a day, 24 hours after the episode. Check some hypercoag screens and other blood work, an echocardiogram, Holter monitor. I will be following her with you in the hospital. MD PETER Reaves/CINDY , 07:15 PM , 01:00 AM
[2017-10-24] MEDS: SODIUM CHLOR 0.9% 1000 ML INJ 1,000 ML IV SCH (10:59)
--- NOTE | 2017-10-24 17:44 | ECHRPT ---
Indication: CVA/TIA CONCLUSIONS The left ventricular systolic function is normal with an estimated ejection fraction of 55%. Wall thickness is measured at the upper limits of normal. Normal left ventricular size. BP: 142 / 84 HR: 70 Rhythm: Sinus MEASUREMENTS (Male / Female) Normal Values Technical Quality:Fair 2D ECHO LV Diastolic Diameter PLAX 5.0 cm 4.2 - 5.9 / 3.9 - 5.3 cm LV Systolic Diameter PLAX 3.7 cm IVS Diastolic Thickness 1.0 cm 0.6 - 1.0 / 0.6 - 0.9 cm LVPW Diastolic Thickness 1.0 cm 0.6 - 1.0 / 0.6 - 0.9 cm LV Relative Wall Thickness 0.4 LVOT Diameter 2.0 cm M-MODE Aortic Root Diameter MM 2.9 cm LA Systolic Diameter MM 2.1 cm LA Ao Ratio MM 0.7 AV Cusp Separation MM 2.2 cm DOPPLER AV Peak Velocity 108.0 cm/s AV Peak Gradient 4.7 mmHg LVOT Peak Velocity 86.9 cm/s LVOT Peak Gradient 3.0 mmHg AV Area Cont Eq pk 2.5 cm Mitral E Point Velocity 77.0 cm/s Mitral A Point Velocity 53.8 cm/s Mitral E to A Ratio 1.4 LV E' Lateral Velocity 9.2 cm/s Mitral E to LV E' Lateral Ratio 8.4 LV E' Septal Velocity 7.4 cm/s Mitral E to LV E' Septal Ratio 10.4 PV Peak Velocity 69.2 cm/s PV Peak Gradient 1.9 mmHg FINDINGS LEFT VENTRICLE The left ventricular systolic function is normal with an estimated ejection fraction of 55%. Wall thickness is measured at the upper limits of normal. Normal left ventricular size. RIGHT VENTRICLE Normal right ventricular size and systolic function. LEFT ATRIUM The left atrial size is normal. RIGHT ATRIUM The right atrial size is normal. ATRIAL SEPTUM Normal atrial septal thickness without atrial level shunting by limited color doppler interrogation. AORTA The aortic root and proximal ascending aorta are normal in size on limited imaging. MITRAL VALVE Structurally normal mitral valve. No mitral valve stenosis or regurgitation. AORTIC VALVE Trileaflet aortic valve. No aortic valve stenosis or regurgitation. TRICUSPID VALVE Structurally normal tricuspid valve. No tricuspid valve stenosis or regurgitation. PULMONARY VALVE The pulmonary valve is not well visualized. VESSELS The inferior vena cava is normal in size. PERICARDIUM No pericardial effusion. Irene Cornell MD, FACC (Electronically Signed) Final Date:24 October 2017 17:43
--- NOTE | 2017-10-24 18:15 | MG ---
cc: Randy Gomez MD EEG RECORD NUMBER: [id number] DATE OF : 1970 HISTORY: A 47-year-old with history of stroke. FINDINGS: 6-8 Hz activity, 20-30 microvolts. Frontal beta-theta activity. Good veepocvg-zu-zowalxvxm gradient. Good EEG variability and reactivity. Posterior rhythm incrementing up to 9 to 10 Hz, followed by generalized slowing with transition into drowsy state, followed by Stage I and Stage II sleep with vertex waves and K-complexes and spindle activity. Limited driving with photic stimulation. Single EKG showing sinus rhythm. INTERPRETATION: Normal awake and sleep EEG. Clinical correlation. Randy Gomez MD MG/SB , 06:08 PM , 06:14 PM
[2017-10-24] MEDS: ATORVASTATIN 10 MG TAB PO SCH (20:24)
[2017-10-25] VITALS (11 sets, daily range): BP systolic 92–120; BP diastolic 59–76; PULSE 66–88; RESP 14–23; TEMP 98.2–98.5; O2SAT 99–100
[2017-10-25] MEDS: SODIUM CHLOR 0.9% 1000 ML INJ 1,000 ML IV SCH ×2 (01:17→15:35)
--- NOTE | 2017-10-25 07:42 | HHI.PR ---
Subjective Remarks sr Objective Vital Signs Date Time Temp Pulse Resp B/P (MAP) Pulse Ox O2 Delivery O2 Flow Rate FiO2 10/25/17 06:00 72 10/25/17 04:00 98.5 82 23 92/59 (70) 99 10/25/17 04:00 66 10/25/17 02:00 72 10/25/17 00:00 74 10/25/17 00:00 98.4 70 14 120/64 (82) 99 10/24/17 22:00 70 10/24/17 20:00 98.4 86 16 116/68 (84) 98 10/24/17 20:00 86 10/24/17 19:48 99 21 10/24/17 19:00 99 Room Air 10/24/17 18:00 80 10/24/17 16:00 76 10/24/17 16:00 98.8 72 14 116/74 (88) 100 10/24/17 14:00 82 10/24/17 12:00 88 10/24/17 12:00 98.4 88 16 121/72 (88) 100 10/24/17 10:00 88 10/24/17 08:35 100 21 10/24/17 08:00 98.7 72 20 144/78 (100) 100 10/24/17 08:00 72 I/O 10/24/17 10/24/17 10/24/17 10/25/17 10/25/17 10/25/17 07:00 15:00 23:00 07:00 15:00 23:00 Intake Total 400 ml 840 ml 300 ml Balance 400 ml 840 ml 300 ml Intake Oral 400 ml 840 ml 300 ml # Voids 2 4 1 # Bowel Movements 0 1 0 Result Diagram: 10/23/17 0340 Objective Remarks co ozuna give way rue in fact when i first awaken her she moves well but when asked to move it not so much Assessment and Plan Assessment and Plan imp ? complicated migraine no cva echo nl holter hyper pend but sr here on tele [place] notes pend oob should do well ldl nl asa topamax for ozuna i dw could dc soon complicated migraine vs stress rxt Marty Barros MD Oct 25, 2017 07:42
--- NOTE | 2017-10-25 08:13 | HHI.PR ---
Subjective Remarks in no acute distress. right-sided weakness is better. complaining of some headache. no other complaints. d/w the RN and no acute issues over night. Objective Vitals Vital Signs Date Time Temp Pulse Resp B/P (MAP) Pulse Ox O2 Delivery O2 Flow Rate FiO2 10/25/17 06:00 72 10/25/17 04:00 98.5 82 23 92/59 (70) 99 10/25/17 04:00 66 10/25/17 02:00 72 10/25/17 00:00 74 10/25/17 00:00 98.4 70 14 120/64 (82) 99 10/24/17 22:00 70 10/24/17 20:00 98.4 86 16 116/68 (84) 98 10/24/17 20:00 86 10/24/17 19:48 99 21 10/24/17 19:00 99 Room Air 10/24/17 18:00 80 10/24/17 16:00 76 10/24/17 16:00 98.8 72 14 116/74 (88) 100 10/24/17 14:00 82 10/24/17 12:00 88 10/24/17 12:00 98.4 88 16 121/72 (88) 100 10/24/17 10:00 88 10/24/17 08:35 100 21 I/O 10/24/17 10/24/17 10/24/17 10/25/17 10/25/17 10/25/17 07:00 15:00 23:00 07:00 15:00 23:00 Intake Total 400 ml 840 ml 300 ml Balance 400 ml 840 ml 300 ml Intake Oral 400 ml 840 ml 300 ml # Voids 2 4 1 # Bowel Movements 0 1 0 Result Diagram: 10/23/17339 Imaging Last Impressions Head CT 10/24/17 0000 Signed Impressions: Service Date/Time: Tuesday, October 24, 2017 04:57 - CONCLUSION: Normal examination. Mo Ramírez Jr., MD Neck CTA 10/23/17340 Signed Impressions: Service Date/Time: Monday, October 23, 2017 03:56 - CONCLUSION: Patent carotid arteries and vertebral arteries bilaterally. Mo Ramírez Jr., MD Head CTA 10/23/17340 Signed Impressions: Service Date/Time: Monday, October 23, 2017 03:56 - CONCLUSION: Unremarkable exam. Mo Ramírez Jr., MD Brain MRI 10/23/17 0000 Signed Impressions: Service Date/Time: Monday, October 23, 2017 16:07 - CONCLUSION: 1. No acute intra-cranial abnormality identified. Elmo Balderrama MD Objective Remarks GENERAL: This is a well-nourished, well-developed patient, in no apparent distress. CARDIOVASCULAR: Regular rate and regular rhythm without murmurs, gallops, or rubs. RESPIRATORY: Clear to auscultation. Breath sounds equal bilaterally. No wheezes , rales, or rhonchi. GASTROINTESTINAL: Abdomen soft, non-tender, nondistended. Normal, active bowel sounds MUSCULOSKELETAL: Extremities without clubbing, cyanosis, or edema. NEURO: Alert & Oriented x4 to person, place, time, situation. right-sided weakness seems to be improving. Medications and IVs Inpatient Medications Acetaminophen (Tylenol) 650 mg Q4H PRN PO PAIN 1-10 Last administered on at 22:56; Start 10/23/17 at 10:30 Alteplase, Recombinant (Activase Bolus) 6.7 mg ONCE ONCE IV Last administered on 10/23/17at 04:58; Start 10/23/17 at 04:00; Stop 10/23/17 at 04:01; Status DC Alteplase, Recombinant 60.5 mg/Syringe / Bag 60.5 ml @ 60.5 mls/hr ONCE ONCE IV Last administered on 10/23/17at 04:59; Start 10/23/17 at 04:00; Stop at 04:59; Status DC Aspirin (Aspirin) 325 mg DAILY PO Last administered on 10/24/17at 09:01; Start 10/24/17 at 09:00 Atorvastatin Calcium (Lipitor) 10 mg HS PO Last administered on 10/24/17at 20:24 ; Start 10/23/17 at 21:00 Dextrose (D50w (Vial) Inj) 50 ml UNSCH PRN IV PUSH HYPOGLYCEMIA-SEE COMMENTS Last administered on 10/23/17at 21:11; Start 10/23/17 at 06:30; Stop 10/24/17 at 23:25; Status DC Glucagon (Glucagon Inj) 1 mg UNSCH PRN OTHER HYPOGLYCEMIA-SEE COMMENTS; Start 10/23/17 at 06:30; Stop 10/24/17 at 23:25; Status DC Influenza Virus Vaccine (Flu (Quadrivalent) Vaccine Inj) 0.5 ml ONCE ONCE IM Last administered on 10/24/17at 10:00; Start 10/24/17 at 10:00; Stop 10/24/17 at 10:01; Status DC Insulin Aspart (NovoLOG SUPPLEMENTAL SCALE) 1 ACHS SQ ; Start 10/23/17 at 08:00 ; Stop 10/24/17 at 23:25; Status DC Labetalol HCl (Trandate Inj) 10 mg Q2H PRN IV PUSH For SBP > 180 or DBP > 100; Start 10/23/17 at 06:30 Miscellaneous Information No Heparin, Warfarin, Aspir... UNSCH PRN XX SEE DOSE INSTRUCTIONS; Start 10/23/17 at 04:00; Stop 10/24/17 at 03:59; Status DC Sodium Chloride 1,000 ml @ 70 mls/hr [id number] IV Last administered on at 10:59; Start 10/23/17 at 06:23 Sodium Chloride (NS Flush) 2 ml UNSCH PRN IV FLUSH FLUSH AFTER USING IV ACCESS ; Start 10/23/17 at 06:30 Sodium Chloride (NS Inj) 30 ml ONCE ONCE IVF Last administered on 10/23/17at 04 :59; Start 10/23/17 at 04:00; Stop 10/23/17 at 04:01; Status DC Topiramate (Topamax) 25 mg HS PO ; Start 10/25/17 at 21:00 A/P Assessment and Plan A/P right sided weakness - s/p thrombolysis with the impression of ischemic CVA- however the brain MRI negative for infarct; raises the possibility of complicated migraine all work-up including CTA neck and head, echo and EEG with no acute abnormality. holter pending. started on aspirin and statin- Topamax was added. awaiting the record from [facility] ( reportedly was admitted last year for right-sided weakness). neurology following. continue PT/OT/ST. transfer to telemetry. d/w the RN. Discharge Planning when cleared by neurology. case management for [facility]. María Snowden MD Oct 25, 2017 08:13
--- NOTE | 2017-10-25 08:14 | HHI.FF ---
Face to Face Verification Diagnosis: (1) Right sided weakness Physical Therapy Order: Evaluate and Treat Occupational Therapy Order: Evaluate and Treat Home Health Nursing Order: Medical education Signs/symptoms of disease process Medication education-adverse effect Nursing assessment with vital signs I have seen patient Colleen Fairchild on 10/25/17. My clinical findings support the need for the requested home health care services because: Ltd mobility - disease progression I certify that my clinical findings support that this patient is homebound because: Unsteady gait/balance María Snowden MD Oct 25, 2017 08:14
[2017-10-25] MEDS: ACETAMINOPHEN 325 MG TAB PO PRN (08:49)
[2017-10-25] MEDS: ASPIRIN 325 MG TAB PO SCH (08:49)
[2017-10-25] MEDS: SODIUM CHLORIDE 0.9% FLUSH 10 ML FLUSH IV FLUSH SCH ×2 (08:49→22:22)
[2017-10-25 20:14] LABS: ANA SCREEN POS (NEG)
[2017-10-25] MEDS: ATORVASTATIN 10 MG TAB PO SCH (22:21)
[2017-10-25] MEDS: TOPIRAMATE 25 MG TAB PO SCH (22:21)
--- NOTE | 2017-10-25 23:53 | HM ---
Date Performed: 10/24/2017 Time Performed: 08:07:00 HOOKUP DATE: 10/24/17 08:07:00 AM Tue ANALYSIS START TIME: 10/24/2017 8:12:00 AM ANALYSIS END TIME: 10/25/2017 7:06:22 AM PATIENT AGE: 47 PATIENT HEIGHT PATIENT WEIGHT DRUG LIST PATIENT DIAGNOSIS: stroke alert TEST NARRATIVE: The patient's average heart rate was 79 BPM. Heart rates greater than 120 B PM were noted 1% of the time. No episodes of bradycardia were noted. No pauses exceeding 2.0 sec onds were noted. 1 ventricular ectopics, which represented < 1% of the total beat count, were not ed. The highest ventricular ectopic frequency occurred from 07:00 PM to 08:00 PM Tue. During this t chinyere 1 VE(s) occurred. Ventricular ectopics were observed as 1 isolated beat(s) only. No couplets or runs were noted. No supraventricular ectopics were noted. No episodes of ST depression (defi bry as -1.0 mm or more) were noted in channel 1. No episodes of ST depression (defined as -1.0 mm or more) were noted in channel 2. No episodes of ST depression (defined as -1.0 mm or more) were noted in channel 3. NO DIARY ENTRIES TEST INTERPRETATION: 1. PREDOMINANT UNDERLYING RHYTHM IS SINUS 2. No ventricular or supraventric ular arrythmias noted. No episodes of AFIB noted 3. No pauses noted 4. No cardiac symptoms noted buddy oquendo the recorded time interval Sign ed by : Raj Hairston
[2017-10-26] VITALS (11 sets, daily range): BP systolic 109–130; BP diastolic 57–78; PULSE 73–98; RESP 17–20; TEMP 98.2–98.9; O2SAT 96–100
[2017-10-26] MEDS: SODIUM CHLOR 0.9% 1000 ML INJ 1,000 ML IV SCH ×2 (05:53→09:45)
--- NOTE | 2017-10-26 07:46 | HHI.PR ---
Subjective Remarks sr still Objective Vital Signs Date Time Temp Pulse Resp B/P (MAP) Pulse Ox O2 Delivery O2 Flow Rate FiO2 10/26/17 04:00 98.5 79 17 112/75 (87) 100 10/26/17 00:00 98.4 91 20 115/62 (79) 100 10/25/17 23:00 85 10/25/17 20:48 98.4 88 20 98/76 (83) 100 10/25/17 19:45 99 21 10/25/17 19:00 100 Room Air 10/25/17 16:00 98.2 72 18 118/69 (85) 100 10/25/17 12:26 99 10/25/17 10:00 80 10/25/17 08:00 98.5 86 16 119/74 (89) 99 10/25/17 08:00 76 I/O 10/25/17 10/25/17 10/25/17 10/26/17 10/26/17 10/26/17 07:00 15:00 23:00 07:00 15:00 23:00 Intake Total 300 ml 160 ml Balance 300 ml 160 ml Intake Oral 300 ml 160 ml # Voids 1 # Bowel Movements 0 Result Diagram: 10/23/17 0340 Objective Remarks nad give way rue isstill lifts r knee off bed Assessment and Plan Assessment and Plan imp ? complicated migraine no cva echo nl holter hyper pend but sr here on tele [place] notes pend oob should do well ldl nl asa topamax for ozuna i dw could dc soon complicated migraine vs stress rxt 10/26/17 doing well nothing new no records from [place] still will check mri c spine and if neg she can dc on asa and topamax to home or nh/ rehab today Marty Barros MD Oct 26, 2017 07:46
[2017-10-26] MEDS: SODIUM CHLORIDE 0.9% FLUSH 10 ML FLUSH IV FLUSH SCH ×2 (09:00→21:26)
[2017-10-26] MEDS: ASPIRIN 325 MG TAB PO SCH (09:44)
[2017-10-26] MEDS: ACETAMINOPHEN 325 MG TAB PO PRN (09:44)
--- NOTE | 2017-10-26 11:02 | HHI.PR ---
Subjective Remarks Patient reports she is feeling okay. Still having a headache but is slightly better. Persistent right sided weakness. Objective Vitals Vital Signs Date Time Temp Pulse Resp B/P (MAP) Pulse Ox O2 Delivery O2 Flow Rate FiO2 10/26/17 08:31 98.9 80 20 118/75 (89) 98 10/26/17 04:00 98.5 79 17 112/75 (87) 100 10/26/17 00:00 98.4 91 20 115/62 (79) 100 10/25/17 23:00 85 10/25/17 20:48 98.4 88 20 98/76 (83) 100 10/25/17 19:45 99 21 10/25/17 19:00 100 Room Air 10/25/17 16:00 98.2 72 18 118/69 (85) 100 10/25/17 12:26 99 I/O 10/25/17 10/25/17 10/25/17 10/26/17 10/26/17 10/26/17 07:00 15:00 23:00 07:00 15:00 23:00 Intake Total 300 ml 160 ml 1000 ml Balance 300 ml 160 ml 1000 ml Intake Oral 300 ml 160 ml IV Total 1000 ml # Voids 1 1 # Bowel Movements 0 1 Result Diagram: 10/23/17 0340 Objective Remarks GENERAL: This is a well-nourished, well-developed patient, in no apparent distress. CARDIOVASCULAR: Normal rate and regular rhythm without murmurs, gallops, or rubs. RESPIRATORY: Good respiratory efforts. Breath sounds equal and clear to auscultation bilaterally. GASTROINTESTINAL: Abdomen soft, non-tender, non-distended. Normal active bowel sounds MUSCULOSKELETAL: Extremities without cyanosis, or edema. NEURO: Alert & Oriented x4 to person, place, time, situation. She does have some mild expressive aphasia. Right-sided motor strength is 3 out of 5 compared to 5 out of 5 on the left. PSYCH: Appropriate mood and affect. A/P Problem List: (1) Right sided weakness ICD Code: R53.1 - Weakness Assessment and Plan 47-year-old female with right-sided weakness, concern for CVA. Status post TPA due to high concern for stroke. However MRI negative. Neurology following and considering complicated migraine All work-up including CTA neck and head, echo and EEG with no acute abnormality. holter unremarkable. Cervical MRI pending per neurology started on aspirin and statin- Topamax was added. awaiting the record from [facility] ( reportedly was admitted last year for right-sided weakness). Discussed with RN. They are trying to obtain the records. neurology following. continue PT/OT/ST. Heparin for DVT PPx Discharge Planning Will need SNF. Further plans based on MRI result Percy Adair MD Oct 26, 2017 11:02
[2017-10-26] MEDS ORDERED: GADODIAMIDE PF 287 MG/ML 5 ML VIAL (for RAD MRI) IVCONTRAST ONE (11:54)
--- NOTE | 2017-10-26 12:15 | RADRPT ---
EXAM DATE/TIME: 10/26/2017 11:31 [facility] COMPARISON: No previous studies available for comparison. INDICATIONS : Rigth sided weakness. CONTRAST: 15 cc Omniscan (gadodiamide) IV MEDICAL HISTORY : Hypertension. SURGICAL HISTORY : Hysterectomy. ENCOUNTER: Subsequent ACUITY: 4-6 days PAIN SCORE: 3/10 LOCATION: neck TECHNIQUE: Multiplanar, multisequence MRI examination of the cervical spine was performed. FINDINGS: VERTEBRAE: Normal vertebral body height. Homogeneous marrow signal. ALIGNMENT: No evidence of subluxation. CORD: Normal configuration and signal. POST FOSSA: The cerebellar tonsils are normal in position. POST-CONTRAST: No abnormal areas of enhancement are seen. C2-C3: The thecal sac has a normal configuration. There is no evidence of disc herniation or spinal canal stenosis. The neural foramina are patent bilaterally. C3-C4: The thecal sac has a normal configuration. There is no evidence of disc herniation or spinal canal s tenosis. The neural foramina are patent bilaterally. C4-C5: The thecal sac has a normal configuration. There is no evidence of disc herniation or spinal canal s tenosis. The neural foramina are patent bilaterally. C5-C6: The thecal sac has a normal configuration. There is no evidence of disc herniation or spinal canal s tenosis. The neural foramina are patent bilaterally. C6-C7: The thecal sac has a normal configuration. There is no evidence of disc herniation or spinal canal s tenosis. The neural foramina are patent bilaterally. C7-T1: The thecal sac has a normal configuration. There is no evidence of disc herniation or spinal canal s tenosis. The neural foramina are patent bilaterally. CONCLUSION: Normal cervical spine.. Ponce Brown MD on October 26, 2017 at 12:13 Board Certified Radiologist. This report was verified electronically.
[2017-10-26 13:24] LABS: METHYLMALONIC ACID 0.08 nmol/mL (<=0.40)
[2017-10-26 13:53] LABS: FACTOR VIII(8) ACTIVITY 63 (50-180)
[2017-10-26 15:53] LABS: DRVVT 1:1 MIX ND (CORRECTED); DRVVT CONFIRM ND (NEGATIVE); HEXAGONAL PHASE CONFIRM ND (NEGATIVE)
[2017-10-26] MEDS: HEPARIN SODIUM - SQ 10,000 UNITS/ML VIAL SQ SCH (15:55)
[2017-10-26] MEDS: TOPIRAMATE 25 MG TAB PO SCH (21:22)
[2017-10-26] MEDS: ATORVASTATIN 10 MG TAB PO SCH (21:22)
[2017-10-27] VITALS (9 sets, daily range): BP systolic 106–126; BP diastolic 68–87; PULSE 67–97; RESP 14–23; TEMP 98.4–98.9; O2SAT 96–100
[2017-10-27] MEDS: HEPARIN SODIUM - SQ 10,000 UNITS/ML VIAL SQ SCH ×2 (03:24→14:28)
[2017-10-27] MEDS: ACETAMINOPHEN 325 MG TAB PO PRN ×2 (03:27→22:54)
[2017-10-27 03:51] LABS: ANTI-THROMBIN III ACT 109 (80-120)
[2017-10-27] MEDS: SODIUM CHLORIDE 0.9% FLUSH 10 ML FLUSH IV FLUSH SCH ×2 (07:55→20:49)
[2017-10-27] MEDS: ASPIRIN 325 MG TAB PO SCH (07:56)
--- NOTE | 2017-10-27 08:41 | HHI.PR ---
Subjective Remarks sr still i reviewed [facility] notes nl stress test nl ef 04/2017 syncope and ozuna lp had [address] and cta neg agram done nl dx migraine with syncope she passed out at work then THERE WAS NO R SIDED WEAKNESS THEN WELL DOCUMENTED Objective Vital Signs Date Time Temp Pulse Resp B/P (MAP) Pulse Ox O2 Delivery O2 Flow Rate FiO2 10/27/17 08:00 98.6 82 14 106/68 (81) 100 10/27/17 07:51 77 10/27/17 04:33 18 10/27/17 04:03 67 10/27/17 04:00 98.5 70 22 111/71 (84) 96 10/27/17 00:00 87 10/27/17 00:00 98.5 97 23 126/78 (94) 96 10/26/17 20:02 85 10/26/17 20:00 98.5 79 18 120/78 (92) 96 10/26/17 19:40 97 21 10/26/17 16:08 98.2 98 20 130/57 (81) 99 10/26/17 16:00 98 10/26/17 12:43 98.3 73 20 109/71 (84) 98 10/26/17 12:00 73 10/26/17 09:45 80 I/O 10/26/17 10/26/17 10/26/17 10/27/17 10/27/17 10/27/17 06:59 14:59 22:59 06:59 14:59 22:59 Intake Total 160 ml 1250 ml 1220 ml 480 ml Balance 160 ml 1250 ml 1220 ml 480 ml Intake Oral 160 ml 1220 ml 480 ml IV Total 1250 ml # Voids 1 4 3 # Bowel Movements 1 Result Diagram: 10/23/17 0340 Objective Remarks nad FAVORS R SIDE HEAVILY WITH GAIT NOT MOVING R ARM WITH WALKING ON OWN KEEPS DOWN BY SIDE unsteady gait Assessment and Plan Assessment and Plan imp ? complicated migraine no cva echo nl holter hyper pend but sr here on tele [place] notes pend oob should do well ldl nl asa topamax for ozuna i dw could dc soon complicated migraine vs stress rxt 10/26/17 doing well nothing new no records from [facility] still will check mri c spine and if neg she can dc on asa and topamax to home or nh/ rehab today 10/27/17 sr still favors r side with gait unsteady she needs to go to rehab [place] major fall risk from her gait this am mri c spine nl recheck brain mri and if not any cva she can dc to rehab Marty Barros MD Oct 27, 2017 08:40
--- NOTE | 2017-10-27 11:05 | HHI.PR ---
Subjective Remarks Right sided weakness persist. Headache is better today. Records from [place] reviewed. No right-sided weakness documented. Patient reports when she left the hospital she did have mild right lower extremity weakness but admitted this worsens prior to her admission here. Objective Vitals Vital Signs Date Time Temp Pulse Resp B/P (MAP) Pulse Ox O2 Delivery O2 Flow Rate FiO2 10/27/17 08:00 98.6 82 14 106/68 (81) 100 10/27/17 07:51 77 10/27/17 04:33 18 10/27/17 04:03 67 10/27/17 04:00 98.5 70 22 111/71 (84) 96 10/27/17 00:00 87 10/27/17 00:00 98.5 97 23 126/78 (94) 96 10/26/17 20:02 85 10/26/17 20:00 98.5 79 18 120/78 (92) 96 10/26/17 19:40 97 21 10/26/17 16:08 98.2 98 20 130/57 (81) 99 10/26/17 16:00 98 10/26/17 12:43 98.3 73 20 109/71 (84) 98 10/26/17 12:00 73 I/O 10/26/17 10/26/17 10/26/17 10/27/17 10/27/17 10/27/17 07:00 15:00 23:00 07:00 15:00 23:00 Intake Total 160 ml 1250 ml 1220 ml 480 ml Balance 160 ml 1250 ml 1220 ml 480 ml Intake Oral 160 ml 1220 ml 480 ml IV Total 1250 ml # Voids 1 4 3 # Bowel Movements 1 Result Diagram: 10/23/17 0340 Objective Remarks GENERAL: This is a well-nourished, well-developed patient, in no apparent distress. CARDIOVASCULAR: Normal rate and regular rhythm without murmurs, gallops, or rubs. RESPIRATORY: Good respiratory efforts. Breath sounds equal and clear to auscultation bilaterally. GASTROINTESTINAL: Abdomen soft, non-tender, non-distended. Normal active bowel sounds MUSCULOSKELETAL: Extremities without cyanosis, or edema. NEURO: Alert & Oriented x4 to person, place, time, situation. She does have some mild expressive aphasia. Right-sided motor strength is 3 out of 5 compared to 5 out of 5 on the left. PSYCH: Appropriate mood and affect. A/P Problem List: (1) Right sided weakness ICD Code: R53.1 - Weakness Assessment and Plan 47-year-old female with right-sided weakness, concern for CVA. Status post TPA due to high concern for stroke. However MRI negative. Neurology following and considering complicated migraine All work-up including CTA neck and head, brain MRI, echo and EEG with no acute abnormality. holter unremarkable. Cervical MRI negative. Appreciate recommendations from neurology. Repeat MRI today. If negative recommend rehab. started on aspirin and statin- Topamax was added. Records from [facility] last year revealed the patient was admitted for syncope. She had a complete workup including cerebral angiogram, stress test, echocardiogram, all reportedly normal. continue PT/OT/ST. Consult case management to consider discharge to [place]. Heparin for DVT PPx Discharge Planning Repeat brain MRI today. Patient tearful about possibility of discharge to rehab but agreeable. Case management consulted to have [place] evaluate the patient. Percy Adair MD Oct 27, 2017 11:04
--- NOTE | 2017-10-27 13:31 | RADRPT ---
EXAM DATE/TIME: 10/27/2017 11:23 [facility] COMPARISON: MRI BRAIN W/O CONTRAST, October 23, 2017, 16:07. INDICATIONS : Right sided weakness. MEDICAL HISTORY : Hypertension. SURGICAL HISTORY : Hysterectomy. ENCOUNTER: Initial ACUITY: 1 day PAIN SCORE: 0/10 LOCATION: cranial TECHNIQUE: Multiplanar, multisequence MRI of the brain was performed without contrast. FINDINGS: CEREBRUM: The ventricles are normal for age. No evidence of midline shift, mass lesion, hemorrhage or acute in farction. No extraaxial fluid collections are seen. The pituitary gland and suprasellar cistern are normal in configuration. WHITE MATTER: No significant signal abnormalities are seen in the white matter. POSTERIOR FOSSA: The cerebellum and brainstem are intact. The 4th ventricle is midline. The cerebellopontine angle is unremarkable. The cerebellar tonsils are normal in position. DIFFUSION IMAGING: No focal areas of restricted diffusion are seen. No evidence of acute infarction. EXTRACRANIAL: The visualized portions of the orbits and paranasal sinuses are unremarkable. CONCLUSION: No acute disease. Eduard Queen MD on October 27, 2017 at 13:28 Board Certified Radiologist. This report was verified electronically.
[2017-10-27 14:46] LABS: PROTEIN C ACTIVITY 110 % (70 - 150); PROTEIN S ACTIVITY 107 % (50 - 160)
[2017-10-27 18:04] LABS: ANA PATTERN SPECKLED
[2017-10-27] MEDS: ATORVASTATIN 10 MG TAB PO SCH (20:49)
[2017-10-27] MEDS: TOPIRAMATE 25 MG TAB PO SCH (20:49)
[2017-10-28] VITALS (8 sets, daily range): BP systolic 103–121; BP diastolic 64–68; PULSE 68–94; RESP 14–21; TEMP 98.1–98.8; O2SAT 94–100
[2017-10-28] MEDS: HEPARIN SODIUM - SQ 10,000 UNITS/ML VIAL SQ SCH ×2 (03:00→15:26)
[2017-10-28] MEDS: ACETAMINOPHEN 325 MG TAB PO PRN (05:50)
[2017-10-28] MEDS: SODIUM CHLORIDE 0.9% FLUSH 10 ML FLUSH IV FLUSH SCH ×2 (09:04→21:49)
[2017-10-28] MEDS: ASPIRIN 325 MG TAB PO SCH (09:05)
[2017-10-28] MEDS ORDERED: ASA325 PO (09:09)
[2017-10-28] MEDS ORDERED: TOPI25 PO (09:09)
--- NOTE | 2017-10-28 09:09 | HHI.DS ---
Discharge Summary Admission Date Oct 23, 2017 at 06:00 Discharge Date: Oct 28, 2017 Admitting Diagnosis ADAMA Alert (1) Right sided weakness ICD Code: R53.1 - Weakness Procedures None Brief History - From Admission History of present illness from the admitting physician The patient is a 47 year old female who presents to the [facility] emergency department with a history of reportedly not feeling well prior to going to work at midnight. She is unable to explain how she did not feel well as she is having difficulty speaking. She reports that the symptoms were getting worse at work. She called her boss between 1 and 2 AM and he decided to take her to the emergency department. When she got in the car to come to the emergency department she reports that she was having difficulty putting on her seatbelt. That is when she noticed that she had difficulty moving her right arm. She denies having this previously. She reports that she does have a history of residual weakness of the right lower extremity related to a stroke in March 2017. She denies taking an aspirin on a regular basis daily. She reports that she was on Coumadin up until May 2017. She reports that she does have a history of high blood pressure. The patient estimates that the right upper extremity weakness and difficulty speaking began just prior to arrival in the emergency department while she was in the car being transported by her boss to this facility approximately 30 minutes ago. She reports that she did have chest pain in the vehicle. She denies having any shortness of breath. Otherwise on review of systems, she denies having any recent known fevers, cough or congestion, neck pain, abdominal pain, vomiting, diarrhea, or urinary symptoms. Patient underwent head CT which was negative for bleed. She was initiated on TPA for thrombolysis. CT of brain did not show any occlusion of major vessels. Patient was accepted for admission by critical care medicine service with consult to neurology. When evaluated the patient in the ER early this morning she was laying in the ER stretcher not in any acute distress. History is obtained by reviewing records and discussion with ER physician. Imaging Last Impressions Brain MRI 10/27/17 0000 Signed Impressions: Service Date/Time: Friday, October 27, 2017 11:23 - CONCLUSION: No acute disease. Eduard Queen MD Cervical Spine MRI 10/26/17 0000 Signed Impressions: Service Date/Time: October 11:31 - CONCLUSION: Normal cervical spine.. Ponce Brown MD Head CT 10/24/17 0000 Signed Impressions: Service Date/Time: Tuesday, October 24, 2017 04:57 - CONCLUSION: Normal examination. Mo Ramírez Jr., MD Neck CTA 10/23/17 0341 Signed Impressions: Service Date/Time: Monday, October 23, 2017 03:56 - CONCLUSION: Patent carotid arteries and vertebral arteries bilaterally. Mo Ramírez Jr., MD Head CTA 10/23/17 0341 Signed Impressions: Service Date/Time: Monday, October 23, 2017 03:56 - CONCLUSION: Unremarkable exam. Mo Ramírez Jr., MD PE at Discharge GENERAL: This is a well-nourished, well-developed patient, in no apparent distress. CARDIOVASCULAR: Normal rate and regular rhythm without murmurs, gallops, or rubs. RESPIRATORY: Good respiratory efforts. Breath sounds equal and clear to auscultation bilaterally. GASTROINTESTINAL: Abdomen soft, non-tender, non-distended. Normal active bowel sounds MUSCULOSKELETAL: Extremities without cyanosis, or edema. NEURO: Alert & Oriented x4 to person, place, time, situation. She does have some mild expressive aphasia. Right upper extremity strength has improved to 4 out of 5. Lower extremity strength is 3 out of 5 compared to 5 out of 5 on the left. PSYCH: Appropriate mood and affect. Pt update on day of discharge Patient reports she is feeling better overall. The right upper extremity strength is improved but right lower extremity weakness remained the same. Still very unsteady gait and requires a lot of assistance. Hospital Course 47-year-old female with right-sided weakness, concern for CVA. Status post TPA due to high concern for stroke. However MRI negative. Neurology followed the patient and considering complex migraine. The patient had an extensive workup including CT of the head and neck, brain MRI 2, cervical MRI, echo and EEG, all unremarkable. Apparently she has a previous history of syncope last year and was admitted at a hospital in [place] where she also had an extensive work up that was unremarkable. During the course of the patient's hospitalization here , she was started on aspirin and Topamax. There has been improvement in her headache and right upper extremity weakness. However right lower extremity weakness persist with significant unsteady gait. Agree with neurology recommendation for rehab placement. It was recommended that patient follow up outpatient with Neurology. Pt Condition on Discharge: Good Discharge Disposition: Discharge to SNF Discharge Time: > 30 minutes Discharge Instructions DIET: Follow Instructions for: Heart Healthy Diet Speech Therapy-Diet Recommends: Mechanical Soft, Chopped Meat w/Gravy Activities you can perform: See Additionl Instruction Other Activity Instructions: Use assistance. Follow up Referrals: Neurology - 2 Weeks with Marty Barros MD New Medications: Aspirin (Px Aspirin) 325 Mg Tab 325 MG PO DAILY, #30 TAB Topiramate (Topamax) 25 Mg Tab 25 MG PO HS, #30 TAB Percy Adair MD Oct 28, 2017 09:09
[2017-10-28] MEDS: TOPIRAMATE 25 MG TAB PO SCH (21:49)
[2017-10-28] MEDS: ATORVASTATIN 10 MG TAB PO SCH (21:49)
[2017-10-29] VITALS (7 sets, daily range): BP systolic 107–123; BP diastolic 60–76; PULSE 68–89; RESP 12–18; TEMP 97.6–98.6; O2SAT 100
[2017-10-29] MEDS: HEPARIN SODIUM - SQ 10,000 UNITS/ML VIAL SQ SCH ×2 (03:09→15:21)
[2017-10-29] MEDS: SODIUM CHLORIDE 0.9% FLUSH 10 ML FLUSH IV FLUSH SCH ×2 (08:49→20:23)
[2017-10-29] MEDS: ASPIRIN 325 MG TAB PO SCH (08:49)
[2017-10-29] MEDS: ACETAMINOPHEN 325 MG TAB PO PRN ×2 (08:49→20:23)
--- NOTE | 2017-10-29 15:15 | HHI.PR ---
Subjective Remarks Patient discharged to SNF on 10/28/17. Awaiting insurance authorization. Patient reports she is feeling about the same. Right lower extremity weakness persisting. Anxious to go to rehab to get better. Objective Vitals Vital Signs Date Time Temp Pulse Resp B/P (MAP) Pulse Ox O2 Delivery O2 Flow Rate FiO2 10/29/17 12:00 98.5 89 18 118/69 (85) 100 10/29/17 10:26 18 10/29/17 08:00 98.6 75 18 107/64 (78) 100 10/29/17 04:00 98.4 70 14 116/76 (89) 100 10/29/17 00:00 98.4 68 14 115/69 (84) 100 10/28/17 23:00 94 10/28/17 20:00 98.1 83 16 114/67 (83) 98 10/28/17 16:00 98.4 84 21 120/65 (83) 100 I/O 10/28/17 10/28/17 10/28/17 10/29/17 10/29/17 10/29/17 07:00 15:00 23:00 07:00 15:00 23:00 Intake Total 240 ml 1960 ml Output Total 800 ml Balance 240 ml -800 ml 1960 ml Intake Oral 240 ml 1960 ml Output Urine Total 800 ml # Voids 3 4 # Bowel Movements 1 Objective Remarks GENERAL: This is a well-nourished, well-developed patient, in no apparent distress. CARDIOVASCULAR: Normal rate and regular rhythm without murmurs, gallops, or rubs. RESPIRATORY: Good respiratory efforts. Breath sounds equal and clear to auscultation bilaterally. GASTROINTESTINAL: Abdomen soft, non-tender, non-distended. Normal active bowel sounds MUSCULOSKELETAL: Extremities without cyanosis, or edema. NEURO: Alert & Oriented x4 to person, place, time, situation. She does have some mild expressive aphasia. Right upper extremity strength 4 out of 5. Lower extremity strength is 3 out of 5 compared to 5 out of 5 on the left. PSYCH: Appropriate mood and affect. Procedures None A/P Problem List: (1) Right sided weakness ICD Code: R53.1 - Weakness Assessment and Plan 47-year-old female with right-sided weakness, concern for CVA. Status post TPA due to high concern for stroke. However MRI negative. Neurology followed the patient and considering complex migraine. The patient had an extensive workup including CT of the head and neck, brain MRI 2, cervical MRI, echo and EEG, all unremarkable. Apparently she has a previous history of syncope last year and was admitted at a hospital in [place] where she also had an extensive work up that was unremarkable. During the course of the patient's hospitalization here , she was started on aspirin and Topamax. There has been improvement in her headache and right upper extremity weakness. However right lower extremity weakness persist with significant unsteady gait. Agree with neurology recommendation for rehab placement. It was recommended that patient follow up outpatient with Neurology. Consult case management to consider discharge to [place]. -Continue aspirin and Topamax. Heparin for DVT PPx Discharge Planning Repeat brain MRI today. Patient tearful about possibility of discharge to rehab but agreeable. Case management consulted to have [place] evaluate the patient. Percy Adair MD Oct 29, 2017 15:15
[2017-10-29] MEDS: ATORVASTATIN 10 MG TAB PO SCH (20:23)
[2017-10-29] MEDS: TOPIRAMATE 25 MG TAB PO SCH (20:23)
[2017-10-30] VITALS: BP 109/63; PULSE 73; RESP 15; TEMP 98.4; O2SAT 96
[2017-10-30 04:07] VITALS: BP 108/58; PULSE 68; RESP 12; TEMP 98.3; O2SAT 100
[2017-10-30] MEDS: HEPARIN SODIUM - SQ 10,000 UNITS/ML VIAL SQ SCH (04:28)
[2017-10-30] MEDS: ACETAMINOPHEN 325 MG TAB PO PRN (05:00)
[2017-10-30 08:00] VITALS: BP 118/64; PULSE 74; PULSE 79; RESP 16; TEMP 98.6; O2SAT 100
[2017-10-30] MEDS: ASPIRIN 325 MG TAB PO SCH (10:45)
[2017-10-30] MEDS: SODIUM CHLORIDE 0.9% FLUSH 10 ML FLUSH IV FLUSH SCH (10:45)
[2017-10-30 12:00] VITALS: BP 115/74; PULSE 79; PULSE 83; RESP 16; TEMP 98.3; O2SAT 100
--- NOTE | 2017-10-30 12:10 | HHI.PR ---
Subjective Remarks Follow-up for right-sided weakness. Patient is currently doing well. She denies any acute concerns. Denies any chest pain, shortness of breath, fever or chills. We discussed in detail regarding her home situation. Patient feels that she has been under a lot of stress at home due to multiple jobs and also family situation. Objective Vitals Vital Signs Date Time Temp Pulse Resp B/P (MAP) Pulse Ox O2 Delivery O2 Flow Rate FiO2 10/30/17 08:00 98.6 74 16 118/64 (82) 100 10/30/17 04:07 98.3 68 12 108/58 (75) 100 10/30/17 00:00 98.4 73 15 109/63 (78) 96 10/29/17 23:00 72 10/29/17 20:00 98.1 71 12 123/76 (92) 100 10/29/17 16:00 86 10/29/17 16:00 97.6 75 18 110/60 (77) 100 I/O 10/29/17 10/29/17 10/29/17 10/30/17 10/30/17 10/30/17 07:00 15:00 23:00 07:00 15:00 23:00 Intake Total 720 ml Balance 720 ml Intake Oral 720 ml # Voids 3 # Bowel Movements 1 2 Imaging Last Impressions Brain MRI 10/27/17 0000 Signed Impressions: Service Date/Time: Friday, October 27, 2017 11:23 - CONCLUSION: No acute disease. Eduard Queen MD Cervical Spine MRI 10/26/17 0000 Signed Impressions: Service Date/Time: October 11:31 - CONCLUSION: Normal cervical spine.. Ponce Brown MD Head CT 10/24/17 0000 Signed Impressions: Service Date/Time: Tuesday, October 24, 2017 04:57 - CONCLUSION: Normal examination. Mo Ramírez Jr., MD Neck CTA 10/23/17 034 Signed Impressions: Service Date/Time: Monday, October 23, 2017 03:56 - CONCLUSION: Patent carotid arteries and vertebral arteries bilaterally. Mo Ramírez Jr., MD Head CTA 10/23/17 034 Signed Impressions: Service Date/Time: Monday, October 23, 2017 03:56 - CONCLUSION: Unremarkable exam. Mo Ramírez Jr., MD Objective Remarks GENERAL: Alert, oriented 3, NAD. SKIN: Warm and dry. HEAD: Normocephalic. EYES: No scleral icterus. No injection or drainage. NECK: Supple, trachea midline. No JVD or lymphadenopathy. CARDIOVASCULAR: Regular rate and rhythm without murmurs, gallops, or rubs. RESPIRATORY: Breath sounds equal bilaterally. No accessory muscle use. GASTROINTESTINAL: Abdomen soft, non-tender, nondistended. MUSCULOSKELETAL: No cyanosis, or edema. BACK: Nontender without obvious deformity. No CVA tenderness. Procedures None A/P Problem List: (1) Right sided weakness ICD Code: R53.1 - Weakness Assessment and Plan Ms. Fairchild is a pleasant 47-year-old -Citizen Of [place] female with a history of migraine headache, hypertension who was admitted to the hospital due to right-sided weakness and some slurred speech. Stroke alert was called and patient subsequently received TPA. Patient was evaluated by neurology. Imaging studies indicate no evidence of stroke. After discussing with neurology on 10/30/2017, we obtained a psychiatric consult due to concern over stress and home environment. Right-sided weakness Suspected stroke Probable complicated migraine Status post TPA administration on admission Imaging studies shows no evidence of stroke Continue aspirin 325 mg daily, atorvastatin 10 mg p.o. nightly. Continue topiramate 25 mg nightly. Full code. Heparin subcutaneous. Discharge plan: Although our initial plan was to discharge patient to SNF. However per case management patient's insurance company is not approving for SNF. I discussed with patient. We can likely discharge patient home with home health. Kavitha Katz DO Oct 30, 2017 12:10 pm
[2017-10-30] MEDS ORDERED: WALKER WHEELS/F1 MIS (12:30)
[2017-10-30] MEDS ORDERED: COMMODE 3-IN-11 MIS (12:30)
--- NOTE | 2017-10-30 13:17 | PD.PSY.CON ---
Provisional Diagnosis Admission Date Oct 23, 2017 at 06:00 [place] I. Adjustment disorder with anxiety, history of anxiety and depression, r/o functional neurological symptom disorder [place] II. Deferred [place] III. Migraine, asthma, HTN History of Present Illness Service Psychiatry Consult Requested By Medical team Reason for Consult To rule out conversion Primary Care Physician Unknown HPI The patient is a 47-year-old -[place] woman, domiciled in [facility] with her son, but , employed, with psychiatric history of depression , anxiety, no previous psychiatric admissions, no previous suicide attempts, she is not in psychotropics, denies use of illegal drugs and alcohol, medical history of migraine, HTN, asthma, who presents with right-sided weakness, concern for CVA. Status post TPA due to high concern for stroke. However MRI negative. Neurology followed the patient and considering complex migraine. The patient had an extensive workup including CT of the head and neck, brain MRI 2 , cervical MRI, echo and EEG, all unremarkable. Apparently she has a previous history of syncope last year and was admitted at a hospital in [place] where she also had an extensive work up that was unremarkable. During the course of the patient's hospitalization here, she was started on aspirin and Topamax. There has been improvement in her headache and right upper extremity weakness. However right lower extremity weakness persist with significant unsteady gait. It was recommended that patient follow up outpatient with Neurology. Consulted to psychiatry to rule out potential functional neurological symptom disorder. On psychiatric evaluation the patient is calm, cooperative, a little bit irritable. Patient expressed concern about the psychiatric consult stating that she has not requested to see a psychiatrist. She denies symptoms of depression, such as anhedonia, hopelessness, helplessness, worthlessness, suicidal ideation, homicidal ideation, visual or auditory hallucinations. The patient denies an acute stressor previous to appearance current neurological symptoms. She does report that she has been very stressed lately, she has been dealing with 3 stressful jobs, marital problems, but also a lot of stress with her youngest daughter "which is a very difficult person, and I have a very difficult relationship with". As the patient is talking about her relationship with her daughter, she broke into tears, stating that about a week ago she came to visit her and destroyed her apartment. Patient does see to seem to accept the current neurological symptoms could be related with stress. As the patient was talking about her daughter she presented a very interesting speech pattern, stuttering like. she denies the use of illegal drugs or alcohol. Review of Systems Constitutional: DENIES: Diaphoretic episodes, Fatigue, Fever, Weight gain, Weight loss, Chills, Dizziness, Change in appetite, Night Sweats Endocrine: DENIES: Abnorml menstrual pattern, Heat/cold intolerance, Polydipsia , Polyuria, Polyphagia Eyes: DENIES: Blurred vision, Diplopia, Eye inflammation, Eye pain, Vision loss , Photosensitivity, Double Vision Ears, nose, mouth, throat: DENIES: Tinnitus, Hearing loss, Vertigo, Nasal discharge, Oral lesions, Throat pain, Hoarseness, Ear Pain, Running Nose, Epistaxis, Sinus Pain, Toothache, Odynophagia Respiratory: DENIES: Apneas, Cough, Snoring, Wheezing, Hemoptysis, Sputum production, Shortness of breath Cardiovascular: DENIES: Chest pain, Palpitations, Syncope, Dyspnea on Exertion , PND, Lower Extremity Edema, Orthopnea, Claudication Gastrointestinal: DENIES: Abdominal pain, Black stools, Bloody stools, Constipation, Diarrhea, Nausea, Vomiting, Difficulty Swallowing, Anorexia Genitourinary: DENIES: Abnormal vaginal bleeding, Dysmenorrhea, Dyspareunia, Sexual dysfunction, Urinary frequency, Urinary incontinence, Urgency, Hematuria , Dysuria, Nocturia, Vaginal discharge Musculoskeletal: DENIES: Joint pain, Muscle aches, Stiffness, Joint Swelling, Back pain, Neck pain Integumentary: DENIES: Abnormal pigmentation, Pruritus, Rash, Nail changes, Breast masses, Breast skin changes, Nipple discharge Immunologic/allergic: DENIES: Eczema, Urticaria Neurologic: COMPLAINS OF: Abnormal gait, Localized weakness, Paresthesias Psychiatric: COMPLAINS OF: Anxiety, DENIES: Confusion, Mood changes, Depression , Hallucinations, Agitation, Suicidal Ideation, Homicidal Ideation, Delusions Past Family Social History Coded Allergies: No Known Allergies (Unverified , 10/23/17) Active Scripts Topiramate (Topamax) 25 Mg Tab, 25 MG PO HS, #30 TAB Prov:Percy Adair MD 10/28/17 Aspirin (Px Aspirin) 325 Mg Tab, 325 MG PO DAILY, #30 TAB Prov:Percy Adair MD 10/28/17 Current Medications Medications (Trade) Dose Ordered Sig/Melany Route Start Time Stop Time Status Last Admin (NS Flush) 2 ml BID IV FLUSH 10/23/17 09:00 10/30/17 10:45 (NS Flush) 2 ml UNSCH PRN IV FLUSH 10/23/17 06:30 (Trandate Inj) 10 mg Q2H PRN IV PUSH 10/23/17 06:30 (Lipitor) 10 mg HS PO 10/23/17 21:00 10/29/17 20:23 (Tylenol) 650 mg Q4H PRN PO 10/23/17 10:30 10/30/17 05:00 (Aspirin) 325 mg DAILY PO 10/24/17 09:00 10/30/17 10:45 (Topamax) 25 mg HS PO 10/25/17 21:00 10/29/17 20:23 (Heparin Inj) 5,000 units Q12H SQ 10/26/17 15:00 10/30/17 04:28 Family Psych History She denies family psychiatric history Social History Patient was born and raised in [place], she lives in [facility] with her son, she is but , she currently has 3 jobs, she is college educated Patient's Strengths (min. 2) Employed, no previous psychiatric hospitalizations, she denies history of sexual /psychological, physical abuse as a child Physical Exam Patient has weakness and stiffness in her right hand, Vital Signs Vital Signs Date Time Temp Pulse Resp B/P (MAP) Pulse Ox O2 Delivery O2 Flow Rate FiO2 10/30/17 12:00 98.3 79 16 115/74 (88) 100 10/26/17 19:40 21 Mental Status Examination Appearance: Appropriate Consciousness: Alert Orientation: x4 Motor Activity: Normal gait Speech: Unremarkable Language: Adequate Fund of Knowledge: Adequate Attention and Concentration: Adequate Memory: Unremarkable Mood: Sad Affect: Irritable Thought Process & Associations: Intact Thought Content: Appropriate Hallucination Type: None Delusion Type: None Suicidal Ideation: No Suicidal Plan: No Suicidal Intention: No Homicidal Ideation: No Homicidal Plan: No Homicidal Intention: No Insight: Adequate Judgment: Adequate Assessment & Plan Problem List: (1) Adjustment disorder with anxiety ICD Codes: F43.22 - Adjustment disorder with anxiety Assessment & Plan: At the moment of my evaluation the patient does not present any concerning acute symptoms of depression or psychosis. She denies suicidal or homicidal ideation, she denies visual and auditory hallucinations. Patient does report symptomatology of anxiety, acute stressed and feeling overwhelmed in the context of multiple stressors. The patient reports that she has been struggling with 3 jobs, working a lot of hours, is sleeping poorly at night due to work. She also has been having conflicts with her and the most important, and what seemed to be a very charge of emotions distress, disagreement with her youngest daughter. At this moment is very difficult to connect her neurological symptoms with stress, but functional neurological symptoms disorder is possible, however complex migraine has to be completely ruled out. She does not meet criteria for involuntary psychiatric admission at this moment. She will benefit of ProHance if outpatient psychotherapy and counseling. I would recommend a low dose of benzodiazepine for her current anxiety and insomnia, clonazepam 0.5 mg 3 times daily. Extensive psychoeducation, supportive motivation provided. I will follow uup. Assessment & Plan Estimated LOS: Nima Fuchs MD Oct 30, 2017 13:17
[2017-10-30 15:51] LABS: CARDIOLIPIN IGG AB <9.4 GPL; CARDIOLIPIN IGM AB 16.6 MPL
[2017-10-30 16:00] VITALS: BP 147/75; PULSE 89; RESP 18; TEMP 98.8; O2SAT 100
[2017-10-30] MEDS ORDERED: TOPI25 PO (18:36)
== END 2017-10-30 19:00 | disposition home or self-care (01) | DRG 103 ==
LOC: NEPE 03:28 → NEDA 06:00 → N03B 08:16
PROVIDERS: ADMIT Hospitalist; ATTEND Hospitalist
DX: G43.109 Migraine with aura, not intractable, without status migrainosus (principal); R47.01 Aphasia; I10 Essential (primary) hypertension; R29.810 Facial weakness; I69.341 Monoplegia of lower limb following cerebral infarction affecting right dominant side; R07.9 Chest pain, unspecified; F43.22 Adjustment disorder with anxiety; G47.00 Insomnia, unspecified; Z90.710 Acquired absence of both cervix and uterus; Z63.0 Problems in relationship with spouse or partner; Z23 Encounter for immunization
CPT/HCPCS: 70450; 70496; 70498; 70551; 72156; 80048; 80061; 80307; 81001; 81240; 81241; 82550; 82607; 82746; 82948; 83036; 83921; 84165; 84207; 84425; 84439; 84443; 84484; 84702; 85025; 85240; 85300; 85303; 85306; 85384; 85610; 85613; 85652; 85730; 86038; 86039; 86140; 86147; 86592; 86850; 86900; 86901; 90686; 93005; 93225; 93226; 93306; 95819; 96374; 96375; A9579; J1644; J2997; J7030; Q2038; Q9967

== ENCOUNTER 2018-05-17 11:02 | Observation (INO) ==
--- NOTE | 2018-05-17 11:40 | ED ---
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 When she returned to the office, office personnel realized that she was confused and had problem with dysarthria. Patient was brought to our waiting area and had a syncopal episode in triage. Patient was brought directly to emergency department and evaluated and found to have 3/5 weakness on the right face and right arm and 2/5 on the right leg. Patient had starting stuttering speech but able to localize where she is and had no amnesia of events. Related Data Home Medications Medication Instructions Recorded Confirmed Adderall 05/17/18 Norvasc 5 mg PO DAILY 05/17/18 05/17/18 albuterol sulfate [Ventolin HFA] 1 puff INHALATION Q4-6H PRN 05/17/18 05/17/18 hydrochlorothiazide 12.5 mg PO DAILY 05/17/18 05/17/18 topiramate [Topamax] 25 mg PO DAILY 05/17/18 05/17/18 Allergies Allergy/AdvReac Type Severity Reaction Status Date / Time aspirin Allergy Bleeding Verified 05/17/18 11:15 Review of Systems ROS: all other systems reviewed are negative [facility] Medical History Medical History Asthma (Acute) ADHD (attention deficit hyperactivity disorder) (Acute) Hypertension (Acute) CVA (cerebral vascular accident) (Acute) H/O: hysterectomy (Acute) Heart attack (Acute) Panic attack (Acute) Surgical History Surgical History H/O cardiac catheterization (Acute ~2010) Family History Family History Grandparent Stroke Seizure Daughter Seizure Social History Social History Substance History: No History of Abuse Second Hand Smoke Exposure: No Smoking Status: Former smoker Cigarettes Per Day: 10 Years Smoked: 10 Pack-Years: 5.00 Smoking End Date: 2000 How Often Do You Have a Drink Containing Alcohol: Monthly or less Hx Recent Travel: No Recent Travel in [facility] within the Last 8 Weeks: No Recent Out of Country Travel within the Last 8 Weeks: No Exam Narrative Exam Narrative: GENERAL: Alert but anxious and with stuttering speech SKIN: Focused skin assessment warm/dry. HEAD: Atraumatic. Normocephalic. Marginal right facial weakness EYES: Pupils equal and round. No scleral icterus. No injection or drainage. ENT: No nasal bleeding or discharge. Mucous membranes pink and moist. NECK: Trachea midline. No JVD. CARDIOVASCULAR: Regular rate and rhythm. No murmur appreciated. RESPIRATORY: No accessory muscle use. Clear to auscultation. Breath sounds equal bilaterally. GASTROINTESTINAL: Abdomen soft, non-tender, nondistended. Hepatic and splenic margins not palpable. MUSCULOSKELETAL: No obvious deformities. No clubbing. No cyanosis. No edema. NEUROLOGICAL: 3/5 weakness right face and upper extremity. 2 out of 5 weakness to right lower extremity. Reflexes were 3 out of 5 bilaterally PSYCHIATRIC: Dysarthria with stuttering speech; with increased anxiety and stress Course Reevaluation(s) Reevaluation #1: Speech improved significantly but still stuttering. MRI showed no abnormalities. Review of records shows identical presentation in December. Neurologist here and will see and evaluate patient Time: 12:05 Initial Documented Vital Signs Temperature 98.6 F 05/17/18 11:15 Pulse Rate 130 H 05/17/18 11:15 Respiratory Rate 18 05/17/18 11:15 Blood Pressure 170/135 H 05/17/18 11:15 Pulse Oximetry 100 05/17/18 11:15 Last Documented Vital Signs Temperature 98.6 F 05/17/18 11:15 Pulse Rate 84 05/17/18 16:17 Respiratory Rate 18 05/17/18 16:17 Blood Pressure 140/89 05/17/18 16:17 Pulse Oximetry 98 05/17/18 16:17 NIH Stroke Scale NIH Stroke Scale Level of Consciousness: 0-Alert Orientation Questions: 0-Answers both correct Responds to Commands: 0-Both tasks correct Total: 0 Medical Decision Making MDM Narrative Medical decision making narrative: Patient presents with almost identical presentation from ED evaluation in December of this year. MRI shows no acute changes. Medical Screen Exam Complete: Yes Emergency Medical Condition: Yes Lab Data Result diagrams: 05/17/18 11:15 05/17/18 11:15 Lab Results 05/17/18 05/17/18 05/17/18 Range/Units 11:15 11:15 11:15 CBC w Diff Auto diff final WBC 7.5 (4.0-11.0) th/mm3 RBC 4.71 (4.00-5.30) mil/mm3 Hgb 13.1 (11.6-15.3) gm/dL POC Hgb (Calc) Not Reportable Hct 39.0 (35.0-46.0) % POC Hct Not Reportable MCV 82.9 (80.0-100.0) fL MCH 27.8 (27.0-34.0) pg MCHC 33.5 (32.0-36.0) % RDW 12.7 (11.6-17.2) % Plt Count 180 (150-450) th/mm3 MPV 9.4 (7.0-11.0) fL Neut % (Auto) 33.0 (16.0-70.0) % Lymph % (Auto) 53.6 H (9.0-44.0) % Amelia % (Auto) 9.5 H (0.0-8.0) % Eos % (Auto) 3.3 (0.0-4.0) % Baso % (Auto) 0.6 (0.0-2.0) % Neut # (Auto) 2.5 (1.8-7.7) th/mm3 Lymph # (Auto) 4.1 (1.0-4.8) th/mm3 Amelia # (Auto) 0.7 (0.0-0.9) th/mm3 Eos # (Auto) 0.2 (0.0-0.4) th/mm3 Baso # (Auto) 0.0 (0.0-0.2) th/mm3 WBC Differential . Differential Comment . PT 10.3 (9.8-11.6) sec INR 1.0 Ratio APTT 26.4 (24.3-30.1) sec Fibrinogen (227-377) mg/dL POC Sodium 145 H (137-144) mmol/L Sodium 142 (136-145) meq/L POC Potassium 3.5 L (3.6-5.0) mmol/L Potassium 3.6 (3.5-5.1) meq/L POC Chloride 104 (102-111) mmol/L Chloride 107 (98-107) meq/L Carbon Dioxide 24.8 (21.0-32.0) meq/L Anion Gap 10 (5-15) meq/L POC BUN 8 (5-21) mg/dL BUN 9 (7-18) mg/dL Creatinine 1.13 H (0.50-1.00) mg/dL POC Creatinine 0.9 (0.6-1.3) mg/dL Estimated GFR 62 L (>89) mL/min POC Glucose 89 (68-110) mg/dL Random Glucose 88 (74-106) mg/dL Calcium 9.3 (8.5-10.1) mg/dL Total Creatine Kinase 132 (26-192) U/L CK-MB (CK-2) Less than 1.0 (0.5-3.6) ng/mL Troponin I Less than 0.02 L (0.02-0.05) ng/mL Beta HCG, Quant (0-5) mIU/mL Ur Collection Type Urine Color (Yellw/Straw) Urine Clarity (Clear) Urine pH (5.0-8.5) Ur Specific [place] (1.002-1.035) Urine Protein (Neg-Trace) mg/dL Urine Glucose (UA) (Negative) mg/dL Urine Ketones (Negative) mg/dL Urine Occult Blood (Negative) Urine Nitrate (Negative) Urine Bilirubin (Negative) Urine Urobilinogen (Less than 2) mg/dL Ur Leukocyte Esterase (Negative) Urine RBC (0-3) /hpf Urine WBC (0-5) /hpf Ur Squamous Epith Cells (0-5) /hpf Micro UA Comment Ur Microscopic Review Urine Culture Comments Urine Opiates Screen (Neg) Ur Barbiturates Screen (Neg) Ur Amphetamines Screen (Neg) U Benzodiazepines Scrn (Neg) Urine Cocaine Screen (Neg) U Cannabinoids Screen (Neg) 05/17/18 05/17/18 05/17/18 Range/Units 11:15 13:31 13:41 CBC w Diff WBC (4.0-11.0) th/mm3 RBC (4.00-5.30) mil/mm3 Hgb (11.6-15.3) gm/dL POC Hgb (Calc) Hct (35.0-46.0) % POC Hct MCV (80.0-100.0) fL MCH (27.0-34.0) pg MCHC (32.0-36.0) % RDW (11.6-17.2) % Plt Count (150-450) th/mm3 MPV (7.0-11.0) fL Neut % (Auto) (16.0-70.0) % Lymph % (Auto) (9.0-44.0) % Amelia % (Auto) (0.0-8.0) % Eos % (Auto) (0.0-4.0) % Baso % (Auto) (0.0-2.0) % Neut # (Auto) (1.8-7.7) th/mm3 Lymph # (Auto) (1.0-4.8) th/mm3 Amelia # (Auto) (0.0-0.9) th/mm3 Eos # (Auto) (0.0-0.4) th/mm3 Baso # (Auto) (0.0-0.2) th/mm3 WBC Differential Differential Comment PT (9.8-11.6) sec INR Ratio APTT (24.3-30.1) sec Fibrinogen 282 (227-377) mg/dL POC Sodium (137-144) mmol/L Sodium (136-145) meq/L POC Potassium (3.6-5.0) mmol/L Potassium (3.5-5.1) meq/L POC Chloride (102-111) mmol/L Chloride (98-107) meq/L Carbon Dioxide (21.0-32.0) meq/L Anion Gap (5-15) meq/L POC BUN (5-21) mg/dL BUN (7-18) mg/dL Creatinine (0.50-1.00) mg/dL POC Creatinine (0.6-1.3) mg/dL Estimated GFR (>89) mL/min POC Glucose (68-110) mg/dL Random Glucose (74-106) mg/dL Calcium (8.5-10.1) mg/dL Total Creatine Kinase (26-192) U/L CK-MB (CK-2) (0.5-3.6) ng/mL Troponin I (0.02-0.05) ng/mL Beta HCG, Quant 1 (0-5) mIU/mL Ur Collection Type Clean catch Urine Color Yellow (Yellw/Straw) Urine Clarity Clear (Clear) Urine pH 7.0 (5.0-8.5) Ur Specific [place] 1.015 (1.002-1.035) Urine Protein Negative (Neg-Trace) mg/dL Urine Glucose (UA) Negative (Negative) mg/dL Urine Ketones Negative (Negative) mg/dL Urine Occult Blood Negative (Negative) Urine Nitrate Negative (Negative) Urine Bilirubin Negative (Negative) Urine Urobilinogen 0.2 (Less than 2) mg/dL Ur Leukocyte Esterase Trace H (Negative) Urine RBC 0-3 (0-3) /hpf Urine WBC 0-5 (0-5) /hpf Ur Squamous Epith Cells 0-5 (0-5) /hpf Micro UA Comment Culture not ind Ur Microscopic Review Microscopic reviewed Urine Culture Comments Culture not ind Urine Opiates Screen (Neg) Ur Barbiturates Screen (Neg) Ur Amphetamines Screen (Neg) U Benzodiazepines Scrn (Neg) Urine Cocaine Screen (Neg) U Cannabinoids Screen (Neg) 05/17/18 Range/Units 13:41 CBC w Diff WBC (4.0-11.0) th/mm3 RBC (4.00-5.30) mil/mm3 Hgb (11.6-15.3) gm/dL POC Hgb (Calc) Hct (35.0-46.0) % POC Hct MCV (80.0-100.0) fL MCH (27.0-34.0) pg MCHC (32.0-36.0) % RDW (11.6-17.2) % Plt Count (150-450) th/mm3 MPV (7.0-11.0) fL Neut % (Auto) (16.0-70.0) % Lymph % (Auto) (9.0-44.0) % Amelia % (Auto) (0.0-8.0) % Eos % (Auto) (0.0-4.0) % Baso % (Auto) (0.0-2.0) % Neut # (Auto) (1.8-7.7) th/mm3 Lymph # (Auto) (1.0-4.8) th/mm3 Amelia # (Auto) (0.0-0.9) th/mm3 Eos # (Auto) (0.0-0.4) th/mm3 Baso # (Auto) (0.0-0.2) th/mm3 WBC Differential Differential Comment PT (9.8-11.6) sec INR Ratio APTT (24.3-30.1) sec Fibrinogen (227-377) mg/dL POC Sodium (137-144) mmol/L Sodium (136-145) meq/L POC Potassium (3.6-5.0) mmol/L Potassium (3.5-5.1) meq/L POC Chloride (102-111) mmol/L Chloride (98-107) meq/L Carbon Dioxide (21.0-32.0) meq/L Anion Gap (5-15) meq/L POC BUN (5-21) mg/dL BUN (7-18) mg/dL Creatinine (0.50-1.00) mg/dL POC Creatinine (0.6-1.3) mg/dL Estimated GFR (>89) mL/min POC Glucose (68-110) mg/dL Random Glucose (74-106) mg/dL Calcium (8.5-10.1) mg/dL Total Creatine Kinase (26-192) U/L CK-MB (CK-2) (0.5-3.6) ng/mL Troponin I (0.02-0.05) ng/mL Beta HCG, Quant (0-5) mIU/mL Ur Collection Type Urine Color (Yellw/Straw) Urine Clarity (Clear) Urine pH (5.0-8.5) Ur Specific [place] (1.002-1.035) Urine Protein (Neg-Trace) mg/dL Urine Glucose (UA) (Negative) mg/dL Urine Ketones (Negative) mg/dL Urine Occult Blood (Negative) Urine Nitrate (Negative) Urine Bilirubin (Negative) Urine Urobilinogen (Less than 2) mg/dL Ur Leukocyte Esterase (Negative) Urine RBC (0-3) /hpf Urine WBC (0-5) /hpf Ur Squamous Epith Cells (0-5) /hpf Micro UA Comment Ur Microscopic Review Urine Culture Comments Urine Opiates Screen Neg (Neg) Ur Barbiturates Screen Neg (Neg) Ur Amphetamines Screen Neg (Neg) U Benzodiazepines Scrn Neg (Neg) Urine Cocaine Screen Neg (Neg) U Cannabinoids Screen Neg (Neg) Imaging Data Radiologist's impression: Neck MRA 05/17/18 00:00 CONCLUSION: 1. Negative MRA Carotids. Percent stenosis is calculated using the diameter of the stenotic region over the diameter of the normal distal internal carotid artery Head CT 05/17/18 11:33 CONCLUSION: 1. Negative examination. Report was called by [ Dr Burgess to Dr Pina at 11:45] Head MRI 05/17/18 12:32 CONCLUSION: 1. Negative MR Brain with and without contrast. Head MRA 05/17/18 12:32 CONCLUSION: 1. Several moderate segmental stenoses involving the right A1 segment. 2. No evidence of severe stenosis, occlusion or aneurysm. 3. Patent bilateral posterior communicating arteries which fill the posterior cerebral arteries bilaterally. Discharge Plan Discharge Disposition Patient Disposition: 30 Still Patient Physicians Team ED Provider: Russell Pina Primary Care Provider: Nadiya Crawford Attending Provider: Chandra Perez Other Providers: Devang Mosqueda Interventions Interventions: Vital Signs Last Done: 05/17/18 16:17 Status ED Status: Admitted Patient
[2018-05-17 11:41] LABS: Baso % (Auto) 0.6 % (0.0-2.0); Eos # (Auto) 0.2 th/mm3 (0.0-0.4); Eos % (Auto) 3.3 % (0.0-4.0); Hemoglobin 13.1 gm/dL (11.6-15.3); Lymph # (Auto) 4.1 th/mm3 (1.0-4.8); Lymph % (Auto) 53.6 % (9.0-44.0); Mean Corpuscular HGB Conc 33.5 % (32.0-36.0); Mean Corpuscular Hemoglobin 27.8 pg (27.0-34.0); Mean Corpuscular Volume 82.9 fL (80.0-100.0); Mean Platelet Volume 9.4 fL (7.0-11.0); Mono # (Auto) 0.7 th/mm3 (0.0-0.9); Mono % (Auto) 9.5 % (0.0-8.0); Neut # (Auto) 2.5 th/mm3 (1.8-7.7); Platelet Count 180 th/mm3 (150-450); Red Blood Count 4.71 mil/mm3 (4.00-5.30); Red Cell Distribution Width 12.7 % (11.6-17.2); White Blood Count 7.5 th/mm3 (4.0-11.0)
[2018-05-17] MEDS ORDERED: Sod Chloride 0.9% Inj 1,000 ML IV.CONT SCH (11:45)
--- NOTE | 2018-05-17 11:56 | CT ---
EXAM DATE: 05/17/2018 11:37 AM EDT AGE/SEX: 47 years / Female INDICATIONS: Stroke alert. Altered mental status. Right upper and lower extremity weakness. Cephalgi a. Difficulty speaking. Syncopal episode. CLINICAL DATA: This is the patient's initial encounter. Patient reports that signs and symptoms have been present for 1 day and indicates a pain score of 9/10. MEDICAL/SURGICAL HISTORY: Hypertension. None. RADIATION DOSE: 53.40 CTDI (mGy) [place] [facility] [place]24/[place]. . TECHNIQUE: CT of the head without contrast. Using automated exposure control and adjustment of the mA and/or kV according to patient size, radiation dose was kept as low as reasonably achievable to ob tain optimal diagnostic quality images. DICOM format image data is available electronically for revi ew and comparison. FINDINGS: Cerebrum: The ventricles are normal for age. No evidence of midline shift, mass lesion, hemorrhage or acute infarction. No extraaxial fluid collections are seen. Posterior Fossa: The cerebellum and brainstem are intact. The 4th ventricle is midline. The cerebe llopontine angle is unremarkable. Extracranial: The visualized portion of the orbits is intact. Skull: The calvaria is intact. No evidence of skull fracture. CONCLUSION: 1. Negative examination. Report was called by [ Dr Burgess to Dr Pina at 11:45] Electronically signed by: Juice Burgess MD 05/17/2018 11:55 AM EDT
[2018-05-17 12:00] LABS: Activated Partial Thrombo Time 26.4 sec (24.3-30.1); Prothrombin Time 10.3 sec (9.8-11.6)
[2018-05-17 13:46] LABS: Bilirubin,Urine Negative (Negative); Clarity,Urine Clear (Clear); Color,Urine Yellow (Yellw/Straw); Glucose,Urine (UA) Negative (Negative); Leukocyte Esterase,Urine Trace (Negative); Nitrite,Urine Negative (Negative); Specific Gravity,Urine 1.015 (1.002-1.035); Urobilinogen,Urine 0.2 mg/dL (Less than 2)
[2018-05-17 13:52] LABS: RBC,Urine 0-3 /hpf (0-3); Squamous Epithelial Cell,Urine 0-5 /hpf (0-5); WBC,Urine 0-5 /hpf (0-5)
[2018-05-17 13:55] LABS: Anion Gap 10 meq/L (5-15); Blood Urea Nitrogen 9 mg/dL (7-18); Calcium 9.3 mg/dL (8.5-10.1); Carbon Dioxide 24.8 meq/L (21.0-32.0); Chloride 107 meq/L (98-107); Glomerular Filtration Rate 62 mL/min (>89); Glucose,Random 88 mg/dL (74-106); Potassium 3.6 meq/L (3.5-5.1); Sodium 142 meq/L (136-145)
--- NOTE | 2018-05-17 13:55 | MB ---
cc: Marty Barros MD DATE: 05/17/2018 HISTORY OF PRESENT ILLNESS: A 47-year-old right-handed woman with a history of hypertension. She tells me an PA in 2010, history of headaches about 3 per week, might last up to 3 days, bifrontal throbbing with nausea. Denies any miscarriages or blood clots. I had actually seen her on 10/24 of this year. A 47-year-old woman with borderline diabetes, 1 miscarriage she told me at that time although denied that today. In 2017, she was in [place], had a headache. Blood pressure 180/116 right-sided weakness for 3 months went to [facility], was told she had a stroke. LP was done. No aneurysm. Was put on Coumadin. She had chest pain, development of a headache then tingling in the right hand, weakness on the right arm and leg, some slurred speech came in the ER. Stroke alert was then called. NIH stroke scale was 6, she was 3/5, in the right lower and 4/5 in the right upper extremity with a mild expressive aphasia, decreased sensation on the right side. CTA of the neck and [place] were normal. CT scan was negative. On reevaluation NIH stroke scale was 8. TPA was given. She did not have any improvement. She was on Coumadin for 3 months and had stopped it. MRI of the brain was normal. She did not have a stroke by MRI. CPK and troponin were negative as was hCG. We put her on an aspirin. 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 She did not look particularly pale according to the eye witness, who is a coworker and then she was brought in here and rolled in and woke up, seemed a little groggy at first and then seemed fine after that. She was noted to be stuttering in her speech with some right-sided weakness by the ER doctor. REVIEW OF SYSTEMS: She denied any diabetes to me today. She denied any history of hypercholesterolemia, AFib, renal, hepatic, pulmonary disease, thyroid disease, lupus, ulcer, cancer, seizure. SOCIAL HISTORY: Not a smoker or drinker, lives with her children and a friend. Denies any drugs. FAMILY HISTORY: Positive for cancer, positive seizures in a grandfather and her daughter. Positive for stroke in a grandmother. ALLERGIES: NO KNOWN DRUG ALLERGIES. PHYSICAL EXAMINATION: VITAL SIGNS: Now she is in sinus rhythm, pulse of 112, 18, 153/92 to 170/135 initially. NECK: There were no carotid bruits. HEART: Regular rate and rhythm. I did not detect a murmur. NEUROLOGIC: The pupils are equal. Visual gray are full. Extraocular movements intact without nystagmus. Face moves symmetrically with normal sensation on the right and left side. Tongue was midline. There is a positive right drift. Best testing left upper extremity and left lower extremity were normal. The right upper extremity best testing the deltoid, triceps, finger extensors are normal. She has some intermittent strength efforts there. Right lower extremity: She can lift the leg off the bed, put her at about a 4-/5 on the right iliopsoas, tibialis anterior and the right vas testing was normal. Toes were downgoing bilaterally. DTRs are 2+ symmetric throughout. Pinprick is diminished on the right hand and right lower extremity compared to the left. She is not ataxic on [id number] or [id number]. She can repeat and name. Her speech is not stuttering now. She gives a good history. She appears to be maybe a little bit confused. LABORATORY DATA: CBC is normal. Sed rate was 9 on last admission. Urine drug screen was normal last admission. UA was negative in October. BMP today is normal. Troponin was negative as was CPK. Hemoglobin A1c, serum protein electrophoresis was normal in October, LDL cholesterol was normal at 69. Her B6, thiamine, B12, methylmalonic acid, thyroid, folate, hCG all normal last admission. She had a hypercoagulable screen, which was normal on the last admission, prothrombin gene also negative. She had an RPR that was normal. Antinuclear antibody 1:80 speckled only. Antiphospholipid antibody IgM was 16.6, normal less than 15, IgG antiphospholipid antibody was normal. She had an echocardiogram last time here which was normal, left atrial size was normal. She had a Holter monitor which was also normal. She had an EEG which was also normal. She had an MRI of the cervical spine, which was normal. As noted, the CTA of the neck and head was normal and the MRI of the brain also negative. I did review the MRI films as entirely normal. No evidence for old or new stroke. IMPRESSION: Certainly a small stroke here is considered. The ER felt that she was very nervous and anxious when she came in, also had some syncope with some chest pressure. We will recheck her antiphospholipid antibody, keep her head of the bed flat, IV hydration, keep her blood pressure up. Check an MRI of the brain, MRA [place] and neck. Put her back on an aspirin. She has not been taking because she had a bloody nose on it. I did offer her TPA, but she elected to not get TPA and said she did not want it and so we did not give it to her. Her NIH stroke scale today being a 7. Certainly a complicated migraine could be considered. We will put her back on the aspirin, but certainly with the severity of her symptoms, a ERMA is recommended and we will recheck an EEG and an MRI along with an MRA of the arteries. I am going to start her on some Topamax for the history of migraines. Of note, psychiatry did see her last admission. It was thought she had some anxiety and depression, adjustment disorder and there was some thought that her symptoms could be related to stress. I did get to review her [place] notes back in October. She was in sinus rhythm in the hospital. She had a normal stress test and a normal ejection fraction. She had a syncopal episode in April 2017. An LP showed [address] and CTA were negative. Arteriogram was normal. She was diagnosed with migraine with syncope. She had passed out at work then. There was no right-sided weakness then documented. We started Topamax on her for the headaches. MD PETER Reaves/renee , 12:39 PM , 12:55 PM
[2018-05-17 13:57] LABS: Creatine Kinase 132 U/L (26-192)
[2018-05-17] MEDS ORDERED: Gadobutrol PF 10 MMOL/10 ML Vial (for RAD) IV.SIG ONE (14:08)
--- NOTE | 2018-05-17 14:26 | MR ---
EXAM DATE: 05/17/2018 1:51 PM EDT AGE/SEX: 47 years / Female INDICATIONS: CVA. Right sided weakness. CLINICAL DATA: This is the patient's initial encounter. Patient reports that signs and symptoms have been present for 1 day and indicates a pain score of 0/10. MEDICAL/SURGICAL HISTORY: Hypertension. Myocardial infarction. Hysterectomy. COMPARISON: [facility], MR HEAD W & W/O CONTRAST, 05/17/2018. . TECHNIQUE: 3D [id number] MRA was performed. Source images, multiplanar STS MIP, and 3D volum e MIP reconstructions were reviewed. FINDINGS: There is excellent visualization of the major intracranial arteries out to the second-order branch ve ssels. There is no evidence for aneurysm, vessel truncation or severe stenosis, and no evidence for vascular malformation. Several moderate segmental stenoses are noted involving the right A1 segment. Patent posterior communicating arteries are noted bilaterally and fill the posterior cerebral arterie s. CONCLUSION: 1. Several moderate segmental stenoses involving the right A1 segment. 2. No evidence of severe stenosis, occlusion or aneurysm. 3. Patent bilateral posterior communicating arteries which fill the posterior cerebral arteries bila terally. Electronically signed by: Eduard Queen MD 05/17/2018 2:25 PM EDT
--- NOTE | 2018-05-17 14:36 | MR ---
EXAM DATE: 05/17/2018 1:51 PM EDT AGE/SEX: 47 years / Female INDICATIONS: CVA. Right sided weakness. CLINICAL DATA: This is the patient's initial encounter. Patient reports that signs and symptoms have been present for 1 day and indicates a pain score of 0/10. MEDICAL/SURGICAL HISTORY: Hypertension. Myocardial infarction. Hysterectomy. COMPARISON: [facility], CT HEAD W/O CONTRAST, 05/17/2018. . TECHNIQUE: Multiplanar, multisequence examination of the brain was performed without and with 10 ml G adavist (gadobutrol) contrast as a cumulative dose for multiple exams. FINDINGS: Cerebrum: The ventricles are normal for age. No evidence of midline shift, mass lesion, hemorrhage or acute infarction. No extraaxial fluid collections are seen. The pituitary gland and suprasellar cistern are normal in configuration. White Matter: No significant signal abnormalities are seen in the white matter. Posterior Fossa: The cerebellum and brainstem are intact. The 4th ventricle is midline. The cerebel lopontine angle is unremarkable. The cerebellar tonsils are normal in position. Diffusion Imaging: No focal areas of restricted diffusion are seen. No evidence of acute infarction . Extracranial: The visualized portions of the orbits and paranasal sinuses are unremarkable. Post Contrast: No abnormal areas of parenchymal or dural enhancement. No evidence of blood-brain ba rrier breakdown. CONCLUSION: 1. Negative MR Brain with and without contrast. Electronically signed by: Eduard Queen MD 05/17/2018 2:35 PM EDT
--- NOTE | 2018-05-17 14:39 | MR ---
EXAM DATE: 05/17/2018 1:51 PM EDT AGE/SEX: 47 years / Female INDICATIONS: Stroke. Right sided weakness and syncope. CLINICAL DATA: This is the patient's initial encounter. Patient reports that signs and symptoms have been present for 1 day and indicates a pain score of 0/10. MEDICAL/SURGICAL HISTORY: Hypertension. Myocardial infarction. Hysterectomy. [place] [facility] [place] W & W/O CONTRAST, 10/26/2017. [facility] [place] CAROTID ARTERIES W 3D RECON, 10/23/2017. . TECHNIQUE: 10 ml Gadavist (gadobutrol) contrast infused MRA (cumulative dose for multiple exams) of the extracranial circulation was performed using a neurovascular coil. Postprocessing was performed , including rotating sub-volume maximum intensity projections of each carotid artery, rotating full-v olume maximum intensity projections of both carotid arteries, sagittal and coronal sliding thin-slab reformations of each carotid artery, and left oblique sliding thin-slab reformation through the aorti c arch to include the origin of the arch branch vessels. FINDINGS: Aortic Arch : There is a two-vessel origin of the great vessels from the aorta. No evidence of ost ial narrowing. Right Carotid : The common carotid artery is intact. The carotid bulb has a normal configuration wi thout ulceration or narrowing. The internal carotid artery lumen is smooth without stenosis. The ex ternal carotid artery is intact. Left Carotid : The common carotid artery is intact. The carotid bulb has a normal configuration wit hout ulceration or narrowing. The internal carotid artery lumen is smooth without stenosis. The ext ernal carotid artery is intact. Vertebrals : The vertebral arteries have a symmetric diameter. No stenotic lesions are seen. CONCLUSION: 1. Negative MRA Carotids. Percent stenosis is calculated using the diameter of the stenotic region over the diameter of the nor mal distal internal carotid artery Electronically signed by: Eduard Queen MD 05/17/2018 2:38 PM EDT
[2018-05-17 15:19] LABS: Amphetamine Screen,Urine Neg (Neg)
[2018-05-17 15:21] LABS: Barbiturate Screen,Urine Neg (Neg)
[2018-05-17 15:24] LABS: Cannabinoid Screen,Urine Neg (Neg)
[2018-05-17 15:26] LABS: Cocaine Screen,Urine Neg (Neg)
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
[2018-05-17 15:29] LABS: Opiate Screen,Urine Neg (Neg)
[2018-05-17 16:43] LABS: Creatine Kinase 114 U/L (26-192)
--- NOTE | 2018-05-17 20:28 | MG ---
cc: Marty Barros MD EEG NUMBER: [id number] INDICATIONS: History of some right-sided weakness, migraines. Recording shows a symmetric 10 Hz, 60 microvolt posterior rhythm. The patient falls asleep, does reach a little bit of stage II sleep. No hemispheric asymmetries are noted. Specifically, no left temporal lobe abnormalities are noted. Photic stimulation is performed without significant posterior driving. Hyperventilation was not performed. IMPRESSION: Normal awake and sleep electroencephalogram. No evidence for a focal or diffuse abnormality. Specifically, no left hemispheric abnormalities or left temporal lobe abnormalities were noted. Marty Barros MD DJM/ct , 07:49 PM , 07:51 PM
[2018-05-17] MEDS ORDERED: Acetaminophen 325 MG Tablet PO PRN (22:15)
[2018-05-18 02:25] LABS: Creatine Kinase 95 U/L (26-192)
--- NOTE | 2018-05-18 07:14 | P.PNNEU ---
Subjective Subjective Comments: sr no new co Active Medications: Active Medications Acetaminophen (Tylenol) 650 mg PO Q6H PRN PRN Reason: HEADACHE, PAIN 1-10 Last Admin: 05/17/18 22:23 Dose: 650 mg Albuterol (Duoneb Neb (Prn)) 1 ampul NEB Q4HR NEB PRN PRN Reason: wheeze, sob Aspirin (Ecotrin) 325 mg PO DAILY [facility] Last Admin: 05/17/18 14:44 Dose: 325 mg Nitroglycerin (Nitrostat Sl) 0.4 mg SL Q5M PRN PRN Reason: CHEST PAIN Ondansetron HCl (Zofran Inj) 4 mg IV.PUSH Q6H PRN PRN Reason: NAUSEA OR VOMITING Sodium Chloride (Ns Flush) 2 ml IV.FLUSH PRN PRN PRN Reason: FLUSH AFTER USING IV ACCESS Topiramate (Topamax) 25 mg PO DAILY [facility] Allergies/Adverse Reactions: Allergies Allergy/AdvReac Type Severity Reaction Status Date / Time aspirin Allergy Bleeding Verified 05/17/18 11:15 Physical Exam Vital signs: Vital Signs 05/17/18 11:15 05/17/18 11:33 05/17/18 11:47 Temperature 98.6 F Pulse Rate 130 H 112 H 103 H Respiratory Rate 18 18 16 Blood Pressure 170/135 H 153/92 H 156/98 H Pulse Oximetry 100 98 99 05/17/18 14:41 05/17/18 16:17 05/17/18 19:04 Temperature 98.3 F Pulse Rate 92 H 84 82 Respiratory Rate 16 18 15 Blood Pressure 132/85 140/89 130/74 Pulse Oximetry 100 98 99 05/17/18 20:30 05/18/18 00:00 05/18/18 04:00 Temperature 97.7 F 97.8 F 97.7 F Pulse Rate 80 88 Respiratory Rate 18 18 20 Blood Pressure 145/88 H 124/75 113/62 Pulse Oximetry 99 97 96 Intake & Output 05/17/18 05/18/18 05/18/18 18:59 06:59 18:59 Intake Total 1000 / 1000 Balance 1000 / 1000 Weight 89 kg 75.9 kg Intake: IV 1000 / 1000 NS Inj 1,000 ML @ 70 mls/hr IV. 1000 / 1000 CONT .[id number] [facility] Rx#: [id number] Other: # Voids 2 Narrative: face sym speech nl 5/ rue and rle Objective Laboratory Results - last 24 hr 05/17/18 05/17/18 05/17/18 11:15 11:15 11:15 CBC w Diff Auto diff final WBC 7.5 RBC 4.71 Hgb 13.1 POC Hgb (Calc) Not Reportable Hct 39.0 POC Hct Not Reportable MCV 82.9 MCH 27.8 MCHC 33.5 RDW 12.7 Plt Count 180 MPV 9.4 Neut % (Auto) 33.0 Lymph % (Auto) 53.6 H [place] % (Auto) 9.5 H Eos % (Auto) 3.3 Baso % (Auto) 0.6 Neut # (Auto) 2.5 Lymph # (Auto) 4.1 [place] # (Auto) 0.7 Eos # (Auto) 0.2 Baso # (Auto) 0.0 WBC Differential . Differential Comment . PT 10.3 INR 1.0 APTT 26.4 Fibrinogen POC Sodium 145 H Sodium 142 POC Potassium 3.5 L Potassium 3.6 POC Chloride 104 Chloride 107 Carbon Dioxide 24.8 Anion Gap 10 POC BUN 8 BUN 9 Creatinine 1.13 H POC Creatinine 0.9 Estimated GFR 62 L POC Glucose 89 Random Glucose 88 Calcium 9.3 Total Creatine Kinase 132 CK-MB (CK-2) Less than 1.0 Troponin I Less than 0.02 L Beta HCG, Quant Ur Collection Type Urine Color Urine Clarity Urine pH Ur Specific [place] Urine Protein Urine Glucose (UA) Urine Ketones Urine Occult Blood Urine Nitrate Urine Bilirubin Urine Urobilinogen Ur Leukocyte Esterase Urine RBC Urine WBC Ur Squamous Epith Cells Micro UA Comment Ur Microscopic Review Urine Culture Comments Urine Opiates Screen Ur Barbiturates Screen Ur Amphetamines Screen U Benzodiazepines Scrn Urine Cocaine Screen U Cannabinoids Screen 05/17/18 05/17/18 05/17/18 11:15 13:31 13:41 CBC w Diff WBC RBC Hgb POC Hgb (Calc) Hct POC Hct MCV MCH MCHC RDW Plt Count MPV Neut % (Auto) Lymph % (Auto) [place] % (Auto) Eos % (Auto) Baso % (Auto) Neut # (Auto) Lymph # (Auto) [place] # (Auto) Eos # (Auto) Baso # (Auto) WBC Differential Differential Comment PT INR APTT Fibrinogen 282 POC Sodium Sodium POC Potassium Potassium POC Chloride Chloride Carbon Dioxide Anion Gap POC BUN BUN Creatinine POC Creatinine Estimated GFR POC Glucose Random Glucose Calcium Total Creatine Kinase CK-MB (CK-2) Troponin I Beta HCG, Quant 1 Ur Collection Type Clean catch Urine Color Yellow Urine Clarity Clear Urine pH 7.0 Ur Specific [place] 1.015 Urine Protein Negative Urine Glucose (UA) Negative Urine Ketones Negative Urine Occult Blood Negative Urine Nitrate Negative Urine Bilirubin Negative Urine Urobilinogen 0.2 Ur Leukocyte Esterase Trace H Urine RBC 0-3 Urine WBC 0-5 Ur Squamous Epith Cells 0-5 Micro UA Comment Culture not ind Ur Microscopic Review Microscopic reviewed Urine Culture Comments Culture not ind Urine Opiates Screen Ur Barbiturates Screen Ur Amphetamines Screen U Benzodiazepines Scrn Urine Cocaine Screen U Cannabinoids Screen 05/17/18 05/17/18 05/18/18 13:41 16:11 01:17 CBC w Diff WBC RBC Hgb POC Hgb (Calc) Hct POC Hct MCV MCH MCHC RDW Plt Count MPV Neut % (Auto) Lymph % (Auto) [place] % (Auto) Eos % (Auto) Baso % (Auto) Neut # (Auto) Lymph # (Auto) [place] # (Auto) Eos # (Auto) Baso # (Auto) WBC Differential Differential Comment PT INR APTT Fibrinogen POC Sodium Sodium POC Potassium Potassium POC Chloride Chloride Carbon Dioxide Anion Gap POC BUN BUN Creatinine POC Creatinine Estimated GFR POC Glucose Random Glucose Calcium Total Creatine Kinase 114 95 CK-MB (CK-2) Troponin I Less than 0.02 L Less than 0.02 L Beta HCG, Quant Ur Collection Type Urine Color Urine Clarity Urine pH Ur Specific [place] Urine Protein Urine Glucose (UA) Urine Ketones Urine Occult Blood Urine Nitrate Urine Bilirubin Urine Urobilinogen Ur Leukocyte Esterase Urine RBC Urine WBC Ur Squamous Epith Cells Micro UA Comment Ur Microscopic Review Urine Culture Comments Urine Opiates Screen Neg Ur Barbiturates Screen Neg Ur Amphetamines Screen Neg U Benzodiazepines Scrn Neg Urine Cocaine Screen Neg U Cannabinoids Screen Neg Review/Management - Review/Management Plan: imp ? complicated migraine i have added calan sr 120 hs for migrraine will help with vasospasm and asa 81 should be on this regiment after dc if rogerio neg ok to dc top 25 hs she can take also for migraines or just do calan, either way ok with me no norvasc on calan plz eeg nl mri/a/a neg labs ok some hyper labs pend i will fu
[2018-05-18 08:22] LABS: Creatine Kinase 84 U/L (26-192)
[2018-05-18] MEDS ORDERED: Topiramate 25 MG Tablet PO SCH (09:00)
[2018-05-18 09:27] VITALS: RESP 16
[2018-05-18] MEDS ORDERED: Lidocaine PF 1% Inj 5 ML Syringe OTHER ONE (10:02)
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
--- NOTE | 2018-05-18 11:58 | ECG ---
Date Performed: 05/17/2018 Time Performed: 11:15:25 PTAGE: 47 years EKG: SINUS TACHYCARDIA NONSPECIFIC T-WAVE ABNORMALITY ABNORMAL RHYTHM ECG PREVIOUS TRACING : 10/23/2017 04.04 Since the previous tracing, no significant change noted DOCTOR: Marty Mike Interpretating Date/Time 05/18/2018 11:58:21
--- NOTE | 2018-05-18 14:35 | ECHRPT ---
Indication: CVA/TIA CONCLUSIONS Normal left ventricular size and wall thickness. The left ventricular systolic function is normal wi th an estimated ejection fraction in the range of 60-65%. Left ventricular diastolic function parameters a re normal. BP: / HR: Rhythm: Technical Quality: Medications Complications Proc. Components FINDINGS LEFT VENTRICLE Normal left ventricular size and wall thickness. The left ventricular systolic function is normal wi th an estimated ejection fraction in the range of 60-65%. Left ventricular diastolic function parameters a re normal. RIGHT VENTRICLE Normal right ventricular size and systolic function. LEFT ATRIUM The left atrial size is normal. RIGHT ATRIUM The right atrial size is normal. ATRIAL SEPTUM Normal atrial septal thickness without atrial level shunting by limited color doppler interrogation. AORTA The aortic root and proximal ascending aorta are normal in size on limited imaging. MITRAL VALVE Structurally normal mitral valve. No mitral valve stenosis or regurgitation. AORTIC VALVE Trileaflet aortic valve. No aortic valve stenosis or regurgitation. TRICUSPID VALVE Structurally normal tricuspid valve. There is trace tricuspid valve regurgitation. VESSELS The inferior vena cava is normal in size. PULMONARY VALVE The pulmonary valve is not well visualized. PERICADIUM No pericardial effusion. Devang Mosqueda MD, FACC (Electronically Signed) Final Date:18 May 2018 14:35
--- NOTE | 2018-05-18 16:05 | ECG ---
Date Performed: 05/17/2018 Time Performed: 16:32:32 PTAGE: 47 years EKG: Sinus rhythm Nonspecific T wave changes. Since previous tracing, no significant change noted NORMAL ECG PREVIOUS TRACING : 05/17/2018 11.15 DOCTOR: Marty Mike Interpretating Date/Time 05/18/2018 16:04:13
[2018-05-18 16:49] VITALS: BP 128/82; PULSE 91; TEMP 98.4; O2SAT 98
[2018-05-20 03:52] LABS: Homocysteine (Cardiovascular) 13.5 umol/L (<10.4)
[2018-05-21 17:51] LABS: Dil Russell Viper Venom Conf ( ND (NEGATIVE); Dil Russell Viper Venom Time M ND (CORRECTED); Lupus Anticoagulant PTT Screen 34 seconds (< OR = 40)
== END 2018-05-18 19:56 | disposition home or self-care (01) ==
LOC: PHED 11:02 → INTOOBSV 14:08 → PHEDA 14:08 → N05 17:16
PROVIDERS: ADMIT Hospitalist; ATTEND Hospitalist